=== PATIENT | female | born 1945 | race Caucasian/White ===

== ENCOUNTER 2017-05-18 19:29 | Inpatient (IN) | payer OTHER ==
[~2017-05-18] VITALS: Ht 154.9 cm; Wt 119.2 kg
[~2017-05-18 19:29] MED LIST: ALBU3IS INH; ALBU90OI61; ASPI81EC; BUPR100; BUPR100 PO; BUPR100ER PO; CALCAVITD PO; CART1OPSO; CART1OPSO BOTHEYES; CELEXA 40 MG; CITA20 PO; CLON1; CLON1 PO; CYCL10 PO; Citalopram HBr40 MG PO; Coq-10100 MG PO; FLUSAL2505; FLUSAL2505 INH; FLUT.05NI; GABA300 PO; LEVFLO500 PO; LEVO750 PO; LEVSOD100; LEVSOD100 PO; LEVSOD125 PO; LISI20; LISI20 PO; LOSA50 PO; METF500; METF500 PO; MONT10T; MONT10T PO; MULVITMIND; MULVITMIND PO; Milk Thistle175 M1 PO; NEBI5 PO; OMEP20ER PO; OXYACE5T PO; PANT40 PO; PRED10; PRED10 PO; SIMV40; SIMV40 PO; TIOT18 INH; UBID10 PO; Ventolin Soln3 ML INH
[2017-05-18 19:57] LABS: BASOPHILS ABSOLUTE AUTO 0.04 K/mm3 (0.00-0.23); BASOPHILS PERCENT AUTO 0 % (0-2); EOSINOPHILS ABSOLUTE AUTO 0.09 K/mm3 (0.00-0.68); EOSINOPHILS PERCENT AUTO 1 % (0-6); Hemoglobin 12.1 g/dL (11.5-16.0); IMMATURE GRAN ABSOLUTE AUTO 0.06 K/mm3 (0.00-0.10); IMMATURE GRAN PERCENT AUTO 1 % (0-1); LYMPHOCYTES ABSOLUTE AUTO 1.05 K/mm3 (0.84-5.20); LYMPHOCYTES PERCENT AUTO 8 % (21-46); MONOCYTES ABSOLUTE AUTO 0.52 K/mm3 (0.16-1.47); MONOCYTES PERCENT AUTO 4 % (4-13); Mean Corpuscular HGB 32.4 pg (26.0-34.0); Mean Corpuscular HGB Conc 32.7 g/dL (31.5-36.5); Mean Corpuscular Volume 99 fL (80-100); Mean Platelet Volume 9.5 fL (9.1-12.4); NEUTROPHILS ABSOLUTE AUTO 10.78 K/mm3 (1.96-9.15); NEUTROPHILS PERCENT AUTO 86 % (41-73); Platelet Count 254 K/mm3 (150-400); RDW Coefficient Variation 13.2 % (11.7-14.2); RDW Standard Deviation 48.8 fL (35.1-46.3); Red Blood Cell Count 3.73 M/mm3 (3.80-5.20); White Blood Cell Count 12.54 K/mm3 (4.00-11.30)
[2017-05-18 20:17] LABS: PCO2 Arterial 46.6 mmHg (35-45); PO2 Arterial 78.9 mmHg (80-100); pH Blood Arterial 7.36 (7.35-7.45)
[2017-05-18 20:25] LABS: Alanine Aminotransfer (ALT/SGP 33 U/L (12-78); Albumin/Globulin Ratio 1.1 (0.8-1.8); Alk Phos 47 U/L (50-136); Anion Gap 8 mmol/L (6-16); Aspartate Aminotrans (AST/SGOT 39 U/L (12-37); Bilirubin, Total 0.9 mg/dL (0.1-1.0); Blood Urea Nitrogen 21 mg/dL (8-24); CO2, Blood 26 mmol/L (21-32); Calcium, Blood 9.6 mg/dL (8.5-10.1); Chloride, Blood 103 mmol/L (98-108); Creatinine, Blood 0.73 mg/dL (0.40-1.00); Globulin, Blood 3.7 g/dL (2.2-4.0); Glomerular Filtration Rate >60 (60-); Glucose, Blood 126 mg/dL (70-99); Potassium, Blood 4.6 mmol/L (3.5-5.5); Sodium, Blood 137 mmol/L (136-145); Total Protein, Blood 7.7 g/dL (6.4-8.2); Troponin I <0.015 ng/mL (0.000-0.040)
[2017-05-18 21:28] LABS: Influenza A Negative (NEGATIVE); Influenza B Negative (NEGATIVE)
[2017-05-19 04:21] LABS: Hematocrit 34.6 % (33.0-51.0); Hemoglobin 11.4 g/dL (11.5-16.0); Mean Corpuscular HGB 32.6 pg (26.0-34.0); Mean Corpuscular HGB Conc 32.9 g/dL (31.5-36.5); Mean Corpuscular Volume 99 fL (80-100); Platelet Count 213 K/mm3 (150-400); RDW Coefficient Variation 13.3 % (11.7-14.2); RDW Standard Deviation 47.9 fL (35.1-46.3); White Blood Cell Count 12.16 K/mm3 (4.00-11.30)
[2017-05-19 04:53] LABS: Alanine Aminotransfer (ALT/SGP 27 U/L (12-78); Albumin, Blood 3.5 g/dL (3.4-5.0); Albumin/Globulin Ratio 0.9 (0.8-1.8); Alk Phos 38 U/L (50-136); Anion Gap 9 mmol/L (6-16); Aspartate Aminotrans (AST/SGOT 27 U/L (12-37); Bilirubin, Total 0.8 mg/dL (0.1-1.0); Blood Urea Nitrogen 21 mg/dL (8-24); Bun/Creatinine Ratio 29.6 (12.0-20.0); CO2, Blood 27 mmol/L (21-32); Calcium, Blood 9.1 mg/dL (8.5-10.1); Chloride, Blood 102 mmol/L (98-108); Creatinine, Blood 0.71 mg/dL (0.40-1.00); Globulin, Blood 3.9 g/dL (2.2-4.0); Glomerular Filtration Rate >60 (60-); Glucose, Blood 182 mg/dL (70-99); Potassium, Blood 4.6 mmol/L (3.5-5.5); Sodium, Blood 138 mmol/L (136-145); Total Protein, Blood 7.4 g/dL (6.4-8.2)
[2017-05-19 05:19] LABS: BAND PERCENT MAN 18 % (0-8); BASOPHILS PERCENT MAN 0 % (0-2); EOSINOPHILS PERCENT MAN 0 % (0-6); LYMPHOCYTES % ATYPICAL MANUAL 3 % (0-0); LYMPHOCYTES PERCENT MAN 2 % (21-46); MONOCYTES ABSOLUTE MAN 0.12 K/mm3 (0.16-1.47); MONOCYTES PERCENT MAN 1 % (4-13); NEUTROPHILS ABSOLUTE MAN 11.43 K/mm3 (1.96-9.15); SEG NEUTROPHILS PERCENT MAN 76 % (41-73); TOTAL CELLS COUNTED 100
[2017-05-20] MEDS ORDERED: FLUT1DIS2 INH (14:30)
[2017-05-20] MEDS ORDERED: OPTH BOTHEYES (14:34)
[2017-05-20] MEDS ORDERED: [UNRECOGNIZED DRUG - OTHER] BOTHEYES (14:34)
[2017-05-20] MEDS ORDERED: LEVO750 PO (14:49)
[2017-05-20] MEDS ORDERED: PRED10 (14:51)
== END 2017-05-20 16:00 | disposition home or self-care (01) | DRG 871 ==
LOC: ER 19:29 → PCU 20:53 → MEDS 05-19 15:54 → ENPENDDIS 05-20 11:00 → MEDS 05-20 16:00
PROVIDERS: Emergency Medicine; Internal Medicine
DX: A41.9 Sepsis, unspecified organism (principal); J96.21 Acute and chronic respiratory failure with hypoxia; J18.9 Pneumonia, unspecified organism; J44.1 Chronic obstructive pulmonary disease with (acute) exacerbation; Z68.42 Body mass index [BMI] 45.0-49.9, adult; E66.9 Obesity, unspecified; G47.30 Sleep apnea, unspecified; E11.9 Type 2 diabetes mellitus without complications; E03.9 Hypothyroidism, unspecified; M19.90 Unspecified osteoarthritis, unspecified site; F41.9 Anxiety disorder, unspecified; L40.9 Psoriasis, unspecified; Z79.84 Long term (current) use of oral hypoglycemic drugs; Z79.899 Other long term (current) drug therapy; Z99.81 Dependence on supplemental oxygen
CPT/HCPCS: 36415; 36600; 71045; 80053; 82803; 82947; 83605; 83880; 84484; 85025; 87040; 87070; 87205; 87804; 93005; 93010; 94640; 94660; 94667; 94762; 96374; 99285; J0696; J1650; J1940; J1956; J2405; J2930; J7030

== ENCOUNTER → 2017-08-20 | Outpatient (CLI) | payer OTHER ==
[~2017-08-20] MED LIST changes: +FLUT1DIS2 INH; +OPTH BOTHEYES; +[UNRECOGNIZED DRUG - OTHER] BOTHEYES
== END | disposition home or self-care (01) ==
LOC: LAB EV 11:46
DX: E09.9 Drug or chemical induced diabetes mellitus without complications (principal)
CPT/HCPCS: 82043

== ENCOUNTER 2019-03-13 07:50 | Emergency (ER) | payer OTHER ==
[~2019-03-13] VITALS: Ht 162.6 cm; Wt 113.4 kg
[~2019-03-13 07:50] MED LIST changes: -FLUT1DIS2 INH; +FLUT1DIS5 INH; +HYDR1TAB94 PO
[2019-03-13 08:24] LABS: BASOPHILS ABSOLUTE AUTO 0.04 K/mm3 (0.00-0.23); BASOPHILS PERCENT AUTO 0 % (0-2); EOSINOPHILS PERCENT AUTO 0 % (0-6); Hematocrit 34.1 % (33.0-51.0); Hemoglobin 10.8 g/dL (11.5-16.0); IMMATURE GRAN PERCENT AUTO 1 % (0-1); LYMPHOCYTES ABSOLUTE AUTO 0.74 K/mm3 (0.84-5.20); LYMPHOCYTES PERCENT AUTO 5 % (21-46); MONOCYTES ABSOLUTE AUTO 0.74 K/mm3 (0.16-1.47); MONOCYTES PERCENT AUTO 5 % (4-13); Mean Corpuscular HGB 31.3 pg (26.0-34.0); Mean Corpuscular HGB Conc 31.7 g/dL (31.5-36.5); Mean Corpuscular Volume 99 fL (80-100); Mean Platelet Volume 9.6 fL (9.1-12.4); NEUTROPHILS ABSOLUTE AUTO 13.19 K/mm3 (1.96-9.15); NEUTROPHILS PERCENT AUTO 89 % (41-73); Platelet Count 287 K/mm3 (150-400); RDW Coefficient Variation 13.2 % (11.7-14.2); RDW Standard Deviation 46.9 fL (35.1-46.3); Red Blood Cell Count 3.45 M/mm3 (3.80-5.20); White Blood Cell Count 14.81 K/mm3 (4.00-11.30)
[2019-03-13 08:41] LABS: Alanine Aminotransfer (ALT/SGP 19 U/L (12-78); Albumin, Blood 3.3 g/dL (3.4-5.0); Albumin/Globulin Ratio 0.9 (0.8-1.8); Alk Phos 54 U/L (50-136); Anion Gap 9 mmol/L (6-16); Aspartate Aminotrans (AST/SGOT 20 U/L (12-37); Bilirubin, Total 1.1 mg/dL (0.1-1.0); Blood Urea Nitrogen 24 mg/dL (8-24); Bun/Creatinine Ratio 24.8 (12.0-20.0); CO2, Blood 27 mmol/L (21-32); Calcium, Blood 9.5 mg/dL (8.5-10.1); Chloride, Blood 102 mmol/L (98-108); Creatinine, Blood 0.97 mg/dL (0.40-1.00); Globulin, Blood 3.8 g/dL (2.2-4.0); Glomerular Filtration Rate >60 (60-); Glucose, Blood 138 mg/dL (70-99); Potassium, Blood 4.1 mmol/L (3.5-5.5); Sodium, Blood 138 mmol/L (136-145); Total Protein, Blood 7.1 g/dL (6.4-8.2); Troponin I 0.042 ng/mL (0.000-0.040)
[2019-03-13 09:00] LABS: Base Excess Venous 5.5 mmol/L; Bicarbonate Venous 28.6 mmol/L (24.0-30.0); PCO2 Venous 46.6 mmHg (38-42); PO2 Venous 64.8 mmHg (38-42); pH Blood Venous 7.42 (7.34-7.37)
[2019-03-13 11:31] LABS: Source, Urine Catheter
[2019-03-13 11:45] LABS: Appearance, Urine Clear (Clear); Blood, Urine 1+ (Neg); Color, Urine Yellow (P-Yellow); Glucose Qualitative, Urine Neg (Neg); Ketones, Urine 1+ (Neg); Leukocyte Esterase, Urine 1+ (Neg); Nitrite, Urine Neg (Neg); Protein, Urine 2+ (Neg); Specific Gravity, Urine 1.025 (1.003-1.022); Urobilinogen, Urine 1+ (Normal)
[2019-03-13 11:54] LABS: Bilirubin, Urine 1+ (Neg)
[2019-03-13 11:58] LABS: Bacteria Few /hpf; Red Blood Cells, Urine 0-2 /hpf (0-2); Squamous Epithelial Cells Mod /hpf (Few)
== END 2019-03-13 12:20 | disposition short-term general hospital (02) ==
LOC: ER 07:50
PROVIDERS: Emergency Medicine
DX: I60.9 Nontraumatic subarachnoid hemorrhage, unspecified (principal); J44.9 Chronic obstructive pulmonary disease, unspecified; G47.30 Sleep apnea, unspecified; E11.9 Type 2 diabetes mellitus without complications; E03.9 Hypothyroidism, unspecified; F41.8 Other specified anxiety disorders; E66.01 Morbid (severe) obesity due to excess calories; Z68.41 Body mass index [BMI] 40.0-44.9, adult; Z79.899 Other long term (current) drug therapy; Z79.84 Long term (current) use of oral hypoglycemic drugs; Z99.89 Dependence on other enabling machines and devices; Z87.891 Personal history of nicotine dependence; Z99.81 Dependence on supplemental oxygen
CPT/HCPCS: 36415; 70450; 71046; 80053; 81001; 82803; 83605; 83880; 84443; 84484; 85025; 87040; 87086; 93005; 93010; 94640; 96374; 96375; 99285-25; J2405; J3010; P9612

== ENCOUNTER 2019-04-18 09:14 | Inpatient (IN) | payer OTHER ==
[~2019-04-18] VITALS: Ht 162.6 cm; Wt 117.8 kg
[2019-04-18] MEDS ORDERED: ENOX40I SC (09:40)
[2019-04-18] MEDS ORDERED: TAMS.4ER PO (09:41)
[2019-04-18] MEDS ORDERED: Senna S Tablet1 EACH PO (09:43)
[2019-04-18 09:44] LABS: BASOPHILS ABSOLUTE AUTO 0.04 K/mm3 (0.00-0.23); BASOPHILS PERCENT AUTO 1 % (0-2); EOSINOPHILS ABSOLUTE AUTO 0.28 K/mm3 (0.00-0.68); EOSINOPHILS PERCENT AUTO 6 % (0-6); Hematocrit 30.8 % (33.0-51.0); Hemoglobin 9.2 g/dL (11.5-16.0); IMMATURE GRAN ABSOLUTE AUTO 0.02 K/mm3 (0.00-0.10); IMMATURE GRAN PERCENT AUTO 0 % (0-1); LYMPHOCYTES ABSOLUTE AUTO 1.53 K/mm3 (0.84-5.20); LYMPHOCYTES PERCENT AUTO 31 % (21-46); MONOCYTES ABSOLUTE AUTO 0.51 K/mm3 (0.16-1.47); MONOCYTES PERCENT AUTO 11 % (4-13); Mean Corpuscular HGB 30.4 pg (26.0-34.0); Mean Corpuscular HGB Conc 29.9 g/dL (31.5-36.5); Mean Corpuscular Volume 102 fL (80-100); Mean Platelet Volume 9.6 fL (9.1-12.4); NEUTROPHILS ABSOLUTE AUTO 2.49 K/mm3 (1.96-9.15); NEUTROPHILS PERCENT AUTO 51 % (41-73); Platelet Count 224 K/mm3 (150-400); RDW Coefficient Variation 13.7 % (11.7-14.2); Red Blood Cell Count 3.03 M/mm3 (3.80-5.20); White Blood Cell Count 4.87 K/mm3 (4.00-11.30)
[2019-04-18] MEDS ORDERED: DIVA250ER PO (09:44)
[2019-04-18] MEDS ORDERED: SEROQUEL25 MG PO (09:45)
[2019-04-18] MEDS ORDERED: Pedi-Dri 100,0060 GM TOP (09:45)
[2019-04-18] MEDS ORDERED: CELEXA PO (09:46)
[2019-04-18] MEDS ORDERED: Celexa40 MG PO (09:47)
[2019-04-18] MEDS ORDERED: MELA3 PO (09:48)
[2019-04-18 10:05] LABS: Albumin, Blood 2.7 g/dL (3.4-5.0); Albumin/Globulin Ratio 0.8 (0.8-1.8); Bilirubin, Total 0.4 mg/dL (0.1-1.0); Bun/Creatinine Ratio 15.8 (12.0-20.0); Calcium, Blood 9.7 mg/dL (8.5-10.1); Creatinine, Blood 1.14 mg/dL (0.40-1.00); Globulin, Blood 3.4 g/dL (2.2-4.0); Potassium, Blood 4.5 mmol/L (3.5-5.5); Total Protein, Blood 6.1 g/dL (6.4-8.2)
[2019-04-18 10:55] LABS: Source, Urine Clean Catch
[2019-04-18 11:05] LABS: Bilirubin, Urine Neg (Neg); Blood, Urine 1+ (Neg); Glucose Qualitative, Urine Neg (Neg); Ketones, Urine Neg (Neg); Leukocyte Esterase, Urine 3+ (Neg); Nitrite, Urine Pos (Neg); Protein, Urine Neg (Neg); Specific Gravity, Urine 1.025 (1.003-1.022); Urobilinogen, Urine NORM (Normal)
[2019-04-18 11:17] LABS: Appearance, Urine Hazy (Clear); Color, Urine Yellow (P-Yellow); White Blood Cells, Urine TNTC /hpf (0-5)
[2019-04-18 11:18] LABS: Bacteria Mod /hpf; Squamous Epithelial Cells Few /hpf (Few)
[2019-04-18] MEDS ORDERED: CYAN500 PO (12:13)
[2019-04-18] MEDS ORDERED: ABAT250V (12:13)
[2019-04-18] MEDS ORDERED: VIVARIN PO (12:17)
--- NOTE | 2019-04-18 13:30 | NUR ---
Assumed care Pt transferred from ER to Rm 304. Received report from ROSALIO Ambrocio. Patient arrived A/Ox2 to self and place via stretcher. Pt transferred over to bed needing redirection. (Bay) at the bedside. Pt settled into room and oriented to call system. Call light in reach, bed lowest position.
[2019-04-18] MEDS ORDERED: Accuneb1.25 MG/3 INH (15:51)
[2019-04-18] MEDS ORDERED: ACET325 PO (15:51)
[2019-04-18] MEDS ORDERED: BUPR100 PO (15:52)
[2019-04-18] MEDS ORDERED: CO Q-10100 MG PO (15:59)
[2019-04-18] MEDS ORDERED: LOSARTAN POTAS100 MG PO (16:02)
[2019-04-18] MEDS ORDERED: HYDR1TAB94 PO (16:02)
[2019-04-18] MEDS ORDERED: MIRALAX17 GM PO (16:05)
[2019-04-18] MEDS ORDERED: CENTRUM SILVER1 EAC2 PO (16:12)
[2019-04-18] MEDS ORDERED: CALCIUM 600-VI1 EAC2 PO (16:13)
--- NOTE | 2019-04-18 19:38 | NUR ---
SUMMARY FROM 1800 PT SETTLED IN TO ROOM. HAS BEEN ATTEMPTING TO GET OUT OF BED A FEW TIMES. REPORTS SHE WANTS TO SIT ON SIDE OF BED BUT THEN CONTINUES TO TRY AND GET UP. ATE HER SUPPER WITH NO PROBLEM. O2 IN PLACE. CAN BE DIFFICULT TO REDIRECT.
--- NOTE | 2019-04-19 04:18 | NUR ---
SUMMARY: PT IS VERY CONFUSED EXCEPT TO SELF AND IS DIFFICULT TO REDIRECT. SHE WAS REPEATEDLY GETTING OOB AT THE START OF SHIFT, SETTING OFF HER ALARM AND HAS REQUIRED FREQUENT REMINDERS. CONVERSATION WAS VERY NONSENSICAL AND CALLING PT'S DAUGHTER TO ASSIST IN CALMING/REORIENTING HER WAS UNSUCCESSFUL. SEROQUEL AND KLONOPIN RECIEVED AT HS PER EMAR AND PT FINALLY SETTLED AND SLEPT. SHE REMAINS VERY FIGITY WHEN AWAKE, PICKING AT IV LINE AND REMOVING NC. SPO2 WNL ON 2L NC BUT DESATS W/O IT, CONT BIOX INTACT. IVF INFUSING AND ABX RECIEVED FOR UTI. PT IS 1-2 ASSIST TO BSC FOR VOIDS, ATTENDS CHANGED PRN. NO ACUTE CHANGES, VSS/AFEBRILE. SHE'S SLIGHTLY HYPOTENSIVE, SBP 90'S-100'S BUT SHE'S BEEN ASYMPTOMATIC OF ANY CARDIAC DISTRESS. WCTM AND REPORT TO DAY RN.
--- NOTE | 2019-04-19 19:31 | NUR ---
SHIFT SUMMARY PT UP IN CHAIR ON AND OFF TODAY. IN TO VISIT SEVERAL TIMES. PT BECAME INCREASINGLY CONFUSED THE DAY PROGRESSED. BECAME AGITATED AND YELLING OUT THIS EVENING. WOULDN'T FOLLOW DIRECTIONS AND KEPT DEMANDING HER SHOES AND HER SISTER TO BE CALLED TO PICK HER UP. WOULDN'T ALLOW HERSELF TO BE ASSISTED TO BED AND REQUIRED 4 PEOPLE TO HELP HER. HAD CALLED ON PROVIDER AND RECEIVED AN ORDER FOR ZYPREXA BUT PT DID FALL ASLEEP WITHIN 5 MINUTES OF BEING PUT IN BED AND IT WASN'T GIVEN. REPORT GIVEN TO ONCOMING SHIFT.
--- NOTE | 2019-04-19 23:43 | NUR ---
BEGINNING SHIFT SUMMARY ASSUMED CARE OF PT AT 1900. PT IS ALERT AND ORIENTED TO SELF. PT HAS BECOME INCREASING CONFUSED T/O THE SHIFT. IM ZYPREXA GIVEN, EVEN MEDICATIONS GIVEN. HOSPITALIST NOTIFIED AND ORDERED HALDOL, PT WAS STIL AGITATED AND GETTING OUT OF BED. HOSPITALIST NOTIFED AGAIN AND ORIDERED MORE SEROQUEL. PT IS STILL AGITATED AND GETTING OUT OF BED. THERE IS NO SERGO RESTRAINT THAT WILL FIT PT AT THIS TIME. HEART SOUNDS REGULAR, LUNG SOUNDS DIMINISHED WITH CRACKLES AT THE BASES, PT ON 2 L P2 AT BASELINE, CONTINUOUS BIOX MONITORING, PT STAYING ABOUVE 90%. CALL LIGHT IN REACH, BED IN LOWEST POSTION,BED ALARM ON, VIDEO MONITORING ON, WILL CONTINUE TO MONITOR.
[2019-04-20 05:15] LABS: BASOPHILS ABSOLUTE AUTO 0.03 K/mm3 (0.00-0.23); BASOPHILS PERCENT AUTO 1 % (0-2); EOSINOPHILS ABSOLUTE AUTO 0.26 K/mm3 (0.00-0.68); EOSINOPHILS PERCENT AUTO 6 % (0-6); Hematocrit 27.9 % (33.0-51.0); Hemoglobin 8.5 g/dL (11.5-16.0); IMMATURE GRAN ABSOLUTE AUTO 0.02 K/mm3 (0.00-0.10); IMMATURE GRAN PERCENT AUTO 1 % (0-1); LYMPHOCYTES ABSOLUTE AUTO 1.26 K/mm3 (0.84-5.20); LYMPHOCYTES PERCENT AUTO 30 % (21-46); MONOCYTES ABSOLUTE AUTO 0.43 K/mm3 (0.16-1.47); MONOCYTES PERCENT AUTO 10 % (4-13); Mean Corpuscular HGB 30.5 pg (26.0-34.0); Mean Corpuscular HGB Conc 30.5 g/dL (31.5-36.5); Mean Corpuscular Volume 100 fL (80-100); Mean Platelet Volume 9.5 fL (9.1-12.4); NEUTROPHILS ABSOLUTE AUTO 2.16 K/mm3 (1.96-9.15); NEUTROPHILS PERCENT AUTO 52 % (41-73); Platelet Count 228 K/mm3 (150-400); RDW Coefficient Variation 13.3 % (11.7-14.2); RDW Standard Deviation 49.3 fL (35.1-46.3); Red Blood Cell Count 2.79 M/mm3 (3.80-5.20); White Blood Cell Count 4.16 K/mm3 (4.00-11.30)
--- NOTE | 2019-04-20 05:21 | NUR ---
END SHIFT SUMMARY SEROQUEL PILL WAS FOUND IN PT SHEETS DURING ATTENDS CHANGE, EMAR UPDATED. PT SLEPT FOR A COUPLE HOURS UNTIL SHE HAD TO USE THE RESTROOM, THEN THE PT HAS BEEN IN AND OUT OF SLEEP TRYING TO GET OUT OF BED WHEN SHE CAN. PT IS STILL CONFUSED. PT WAS CONTINET TWICE LAST NIGHT WITH THE BED CARMONA, PT COULD NOT USE THE BEDSIDE COMMODE DUE TO WEAKNESS TONIGHT. PT IS CURRENTLY SLEEPING, CALL LIGHT IN REACH, BED IN LOWEST POSTION, BED ALARM ON, WILL CONTINUE TO MONTITOR UNTIL DAYSHIFT NURSE ARRIVES.
[2019-04-20 05:35] LABS: Anion Gap 5 mmol/L (6-16); Blood Urea Nitrogen 13 mg/dL (8-24); CO2, Blood 27 mmol/L (21-32); Calcium, Blood 9.1 mg/dL (8.5-10.1); Chloride, Blood 115 mmol/L (98-108); Creatinine, Blood 0.87 mg/dL (0.40-1.00); Glomerular Filtration Rate >60 (60-); Glucose, Blood 98 mg/dL (70-99); Potassium, Blood 3.9 mmol/L (3.5-5.5); Sodium, Blood 147 mmol/L (136-145)
--- NOTE | 2019-04-20 10:19 | NUR ---
THIS RN WENT TO PASS MEDICATIONS TO PATIENT. PATIENT BELIEVED THIS RN TO BE A PART OF THE DRUG CARTEL. PATIENT CUSSING AT THIS RN AND THE SN. PATIENT MOVING ARM AND NOT ALLOWING THIS RN TO PROVIDE MEDICATIONS. PATIENT THEN STOOD UP AND WAS PULLING ON BIOX. UNABLE TO REDIRECT. PATIENT WALKING OUT OF ROOM, CONTINUALLY YELLING AND CUSSING AT STAFF. THIS RN CALLED SECURITY. THIS RN THEN CALLED DR. MARRUFO, ORDERS FOR SOFT WRIST, MITTENS, SIDE RAILS PLACED. NEW IV PLACED BY CORPORATE PLANNING MANAGERROSALIO PACK FOR PATIENT TO RECIEVE IV ANTIBIOTICS. RESTRAINT ORDERS PLACED.
--- NOTE | 2019-04-20 10:31 | NUR ---
NOTIFIED OF PLACING PATIENT IN RESTRAINTS. TEARFUL. DISCUSSED CONCERNS OF PATIENT HAVING A "PSYCHOTIC EPISODE" THIS RN INFORMED SHE WOULD LET THE DR. KNOW OF PAST HISTORY OF MENTAL ILLNESS. ASKED IF HE COULD STAY HOME AND REST. THIS RN INFORMED HIM SHE WOULD CALL IF ANYTHING CHANGED.
--- NOTE | 2019-04-20 17:04 | NUR ---
SHIFT SUMMARY PATIENT IS YELLING FOR YAMINI. SHE IS NOT ORIENTED TO PLACE OR SITUATION. BELIEVES SHE IS IMPRISONED AT THIS TIME. BELIEVED THE CLIPPER COUNTERS WAS HER GRANDDAUGHTER. UNABLE TO REORIENT. EYES CLOSED WHILE YELLING.
[2019-04-20 17:35] LABS: Vancomycin, Trough 14.9 ug/mL (5.0-10.0)
[2019-04-21 04:48] LABS: BASOPHILS ABSOLUTE AUTO 0.05 K/mm3 (0.00-0.23); BASOPHILS PERCENT AUTO 1 % (0-2); EOSINOPHILS ABSOLUTE AUTO 0.23 K/mm3 (0.00-0.68); EOSINOPHILS PERCENT AUTO 5 % (0-6); Hematocrit 32.2 % (33.0-51.0); Hemoglobin 9.8 g/dL (11.5-16.0); IMMATURE GRAN ABSOLUTE AUTO 0.14 K/mm3 (0.00-0.10); IMMATURE GRAN PERCENT AUTO 3 % (0-1); LYMPHOCYTES ABSOLUTE AUTO 1.46 K/mm3 (0.84-5.20); LYMPHOCYTES PERCENT AUTO 34 % (21-46); MONOCYTES ABSOLUTE AUTO 0.54 K/mm3 (0.16-1.47); MONOCYTES PERCENT AUTO 12 % (4-13); Mean Corpuscular HGB 30.2 pg (26.0-34.0); Mean Corpuscular HGB Conc 30.4 g/dL (31.5-36.5); Mean Corpuscular Volume 99 fL (80-100); Mean Platelet Volume 9.7 fL (9.1-12.4); NEUTROPHILS ABSOLUTE AUTO 1.92 K/mm3 (1.96-9.15); NEUTROPHILS PERCENT AUTO 44 % (41-73); Platelet Count 210 K/mm3 (150-400); RDW Coefficient Variation 13.4 % (11.7-14.2); RDW Standard Deviation 49.1 fL (35.1-46.3); Red Blood Cell Count 3.24 M/mm3 (3.80-5.20); White Blood Cell Count 4.34 K/mm3 (4.00-11.30)
[2019-04-21 04:58] LABS: Alanine Aminotransfer (ALT/SGP 19 U/L (12-78); Albumin, Blood 2.6 g/dL (3.4-5.0); Albumin/Globulin Ratio 0.8 (0.8-1.8); Alk Phos 44 U/L (50-136); Anion Gap 7 mmol/L (6-16); Aspartate Aminotrans (AST/SGOT 18 U/L (12-37); Bilirubin, Total 0.5 mg/dL (0.1-1.0); Blood Urea Nitrogen 8 mg/dL (8-24); CO2, Blood 23 mmol/L (21-32); Chloride, Blood 117 mmol/L (98-108); Globulin, Blood 3.3 g/dL (2.2-4.0); Glomerular Filtration Rate >60 (60-); Glucose, Blood 100 mg/dL (70-99); Potassium, Blood 3.6 mmol/L (3.5-5.5); Sodium, Blood 147 mmol/L (136-145); Total Protein, Blood 5.9 g/dL (6.4-8.2)
[2019-04-21 06:08] LABS: Source, Urine Catheter
[2019-04-21 06:13] LABS: Bilirubin, Urine Neg (Neg); Blood, Urine Neg (Neg); Glucose Qualitative, Urine Neg (Neg); Ketones, Urine Neg (Neg); Leukocyte Esterase, Urine Neg (Neg); Nitrite, Urine Neg (Neg); Protein, Urine Neg (Neg); Urobilinogen, Urine NORM (Normal)
[2019-04-21 06:26] LABS: PCO2 Arterial 47.4 mmHg (35-45); PO2 Arterial 87.8 mmHg (80-100); pH Blood Arterial 7.35 (7.35-7.45)
[2019-04-21 06:27] LABS: Appearance, Urine Clear (Clear); Color, Urine Yellow (P-Yellow)
--- NOTE | 2019-04-21 07:44 | NUR ---
NOC SHIFT SUMMARY PT VERY ANXIOUS AT BEGINING OF SHIFT. IN RESTRAINTS AND CONSTANTLY TRYING TO GET OUT OF BED. HAD PREVIOUSLY PULLED OUT MULTIPLE IV'S. GAVE ATIVAN 1MG IV AT 2028 AND THIS CALMED PT ENOUGH THAT I WAS ABLE TO GIVE HER HER EVENING MEDS. SHE WAS STILL CONTINUALLY MOVING AROUND IN BED AND NAME CALLING. AT APPROX 0100 THIS AM PT STARTED TO SETTLE DOWN AND GO TO SLEEP. WHEN SHE HAD NOT VOIDED SHE WAS BLADDER SCANNED AND ORDER FOR ZURITA CATH OBTAINED FOR URINARY RETENTION. ZURITA PLACED. PT DID NOT AWAKEN DURING ZURITA PLACEMENT. CONSULTED WITH [facility] REGARDING THIS AND CALLED TO HOSPITALIST VLADIMIR AT 0545 AND REPORTED PT NOT AWAKENING. OBTAINED ORDER FOR STAT BLOOD GAS AT 0556. CALLED AT 0637 WITH BLOOD GAS RESULTS AND FURTHER EXPLAINED HISTORY OF SHUNT PLACEMENT IN HEAD. ORDERED STAT CT. REPORT TO ON COMING RN.
[2019-04-21 11:05] LABS: International Normalized Ratio 1.06; Prothrombin Time Results 11.3 Sec (9.7-11.5)
--- NOTE | 2019-04-21 14:05 | NUR ---
PATIENT WAS DIFFICULT TO AROUSE THIS MORNING. SHE WOULDE OPEN HER EYES WITH PAINFUL STIMULI OR HEARING A VOICE. SHE WOKE UP COMPLETELY DURING HER BEDBATH. HE HAS BEEN AT THE BEDSIDE ON AND OFF THROUGHOUT THE DAY. THE PATIENT IS ALERT AND ORIENTED TODAY WITH SOME FORGFETFULLNESS. SHE KNOWS SHE IS EXTREMELY TIRED. A LUMBAR PUNCTURE HAS BEEN ORDERED. THE PATIENT IS NOW LAYING ON HER STOMACH TO SEE IF SHE CAN HANDLE DOING SO DURING THE PROCEDURE. SHE WAS ONLY ABLE TO LAY ON HER STOMACH FOR 8 MINUTES.
[2019-04-21 16:37] LABS: Automated CSF WBC Count 0.012 K/mm3 (0-5); WBC Count, CSF 12 /mm3 (0-5)
[2019-04-21 16:50] LABS: RBC Count, CSF 112 /mm3 (0-0)
[2019-04-21 16:51] LABS: Appearance, CSF Hazy (Clear); Color, CSF No Color (No Color)
[2019-04-21 17:01] LABS: Lymphocytes, CSF 100 % (40-80)
--- NOTE | 2019-04-21 17:29 | NUR ---
PATIENT WAS DIFFICULT TO AROUSE THIS MORNING. SHE WOKE UP DURING HER BEDBATH THIS MORNING. SHE WAS MORE ALERT AND ORIENTED TODAY COMPARED TO PREVIOUS DAYS. CEREBRAL SPINAL FLUID WAS DRAWN FROM THE PATIENTS DOMESTIC MAID SHUNT THIS AFTERNOON AND SENT TO THE LAB. PATIENT WAS GIVEN 0.5MG OF ATIVAN IV BEFORE THIS PROCEDURE. THE PATIENT BECAME MORE AGITATED AND PULLING AT HER LINES AT 1630. ZURITA IS IN PLACE. WILL MONITOR PATIENT.
[2019-04-21 17:49] LABS: Cryptococcus Neoformans/Gattii Not Detected (NOT DETECT); Enterovirus Not Detected (NOT DETECT); Escherichia Coli K1 Not Detected (NOT DETECT); Haemophilus Influenza Not Detected (NOT DETECT); Herpes Simplex Virus 1 Not Detected (NOT DETECT); Herpes Simplex Virus 2 Not Detected (NOT DETECT); Human Herpesvirus 6 Not Detected (NOT DETECT); Human Parechovirus Not Detected (NOT DETECT); Listeria Monocytogenes Not Detected (NOT DETECT); Neisseria Meningitidis Not Detected (NOT DETECT); Streptococcus Agalactiae Not Detected (NOT DETECT); Streptococcus Pneumoniae Not Detected (NOT DETECT); Varicella Zoster Virus Not Detected (NOT DETECT)
--- NOTE | 2019-04-21 18:39 | NUR ---
Inital spiritual care note: Mrs. Cherry was attempting to remove gown and asking for her purse. She appeared restless, confused, and unable to orient. Spouse and dtr at bedside. Pt kept repeating, "I need my purse. I'm going home." Spouse accepted prayer. They are active i the [employer] community in [place]. Spouse feels family is well loved and supported by this community. Candy Separator Hard making visits to hospital. No needs presented. Family expressed hope for complete recovery. Financial Compliance Manager services will remain available.
--- NOTE | 2019-04-21 23:08 | NUR ---
RECIEVED CALL FROM DR. MARRUFO. I UPDATED HIM ON PT CONDITION AND INFORMED HIM OF PT REFUSAL TO TAKE MEDS. NO ORDERS AT THIS TIME. HE STATES HE WILL SEE PT IN A.M.
--- NOTE | 2019-04-22 07:27 | NUR ---
NOC SHIFT SUMMARY PT IS CONFUSED WITH BOTH VISUAL AND AUDITORY HALUCINATIONS. HAS REMAINED IN RESTRAINTS THIS NIGHT SHE IS CONTINUALLY ATTEMPTING TO PULL OUT IV LINE, CATHETER TUBE, AND POX MONITOR. SHE IS CONTINUALLY ATTEMPTING TO GET OUT OF BED AND IS A FALL RISK. HOSPITALIST FOLLOWING PT CALLED DURING THE NIGHT AND WAS INFORMED OF CONDITION. PT GIVEN HALDOL AND ATIVAN PER MAR WITH LITTLE IMPROVMENT. REPORT TO ONCOMING RN.
[2019-04-22 17:26] LABS: Vancomycin, Trough 14.4 ug/mL (5.0-10.0)
--- NOTE | 2019-04-22 17:47 | NUR ---
PATIENT IS ALERT. SHE IS ORIENTED TO HERSELF ONLY. SHE HAS BEEN CONFUSED, AGITATED AND DELUSIONAL THROUGHOUT THE DAY, TREATED PER EMAR. SHE HAS BEEN IN BILATERAL SOFT WRIST RESTRAINTS FOR MOST OF THE DAY BECAUSE OF HER AGITATION, PULLING AT HER ZURITA AND TRYING TO GET OUT OF BED. ACCORDING TO THE SHIFT REPORT PATIENT DID NOT SLEEP THE NIGHT BEFORE. SHE DID NOT SLEEP DURING THIS SHIFT. HER WAS AT THE BEDSIDE FOR A SHORT AMOUNT OF TIME TODAY. WILL CONTINUE TO MONITOR.
--- NOTE | 2019-04-22 19:51 | NUR ---
Patient found with IV pulled out and legs over side of bed. IV site cleaned and bandage applied. Patient was resituated in bed, and IV antibiotic placed on hold. witihin 5 minutes, legs over side of bed, and patient pulling on mondragon catheter tubing. Call placed to MD to reinstitute bilateral soft wrist restraints after which time they were applied.
--- NOTE | 2019-04-23 06:03 | NUR ---
SALES PLANNING ANALYST SUMMARY Patient given scheduled HS medications last night, and fell asleep about 1.5 hours later. Slept without waking (except for lab and vital signs ) all night. In AM when time for 0600 meds, patient very difficult to wake, and this RN did not feel safe giving po mediction. Mondragon cath d/c'd after midnight. Patient tolerated well. Order to replace mondragon if scan greater than 600 not needed.
--- NOTE | 2019-04-23 17:43 | NUR ---
PATIENT MORE ORIENTED THIS SHIFT. RESTRAINTS REMOVED AT 1000 THIS AM AND PATIENT HAS BEEN CALM AND COOPERATIVE WITH CARE. 20G IV TO R FA WNL, RECEIVING ZOSYN TO TREAT UTI. VSS, ON 2LO2 VIA NC. TOLERATING DIET. ACHS BLOOD SUGARS, NO COVERAGE NEEDED THIS SHIFT. TAKES PILLS WHOLE WITH WATER. AT BEDSIDE FOR MMOST OF THE DAY. CONT/INCONT OF URINE. UP WITH FWW AND 1 ASSIST TO CHAIR/BSC.
--- NOTE | 2019-04-23 23:27 | NUR ---
Late note from 2129. Patient increasingly confused. Started shift asking questions about her situation, where she was, and how long she had been sick. Patient continued to have questions about her health, but didn't seem to have any delusions or paranoia regarding medications, staff until around 2114. At that time, (just after taking all of her scheduled medications), she accused staff of trying to kill her, wearing fake credentials on uniforms, etc. Proceeded to kick over overbed table, pull out IV, shred name bank and remove bioxx. With assist of 2 other nurses, patient bedding and gown changed, IM ativan, haldol and diphenhydramine given per order to calm patient and keep her safe. Hospitalist notified, and order for replacement of soft wrist restraints and four side rails received and implemented. will continue close monitoring.
[2019-04-24 05:16] LABS: BASOPHILS ABSOLUTE AUTO 0.06 K/mm3 (0.00-0.23); BASOPHILS PERCENT AUTO 1 % (0-2); EOSINOPHILS PERCENT AUTO 7 % (0-6); Hematocrit 29.8 % (33.0-51.0); Hemoglobin 9.1 g/dL (11.5-16.0); IMMATURE GRAN ABSOLUTE AUTO 0.01 K/mm3 (0.00-0.10); IMMATURE GRAN PERCENT AUTO 0 % (0-1); LYMPHOCYTES ABSOLUTE AUTO 1.28 K/mm3 (0.84-5.20); LYMPHOCYTES PERCENT AUTO 28 % (21-46); MONOCYTES ABSOLUTE AUTO 0.53 K/mm3 (0.16-1.47); MONOCYTES PERCENT AUTO 12 % (4-13); Mean Corpuscular HGB 29.8 pg (26.0-34.0); Mean Corpuscular HGB Conc 30.5 g/dL (31.5-36.5); Mean Corpuscular Volume 98 fL (80-100); Mean Platelet Volume 9.3 fL (9.1-12.4); NEUTROPHILS ABSOLUTE AUTO 2.34 K/mm3 (1.96-9.15); NEUTROPHILS PERCENT AUTO 52 % (41-73); Platelet Count 229 K/mm3 (150-400); RDW Coefficient Variation 13.3 % (11.7-14.2); RDW Standard Deviation 47.7 fL (35.1-46.3); Red Blood Cell Count 3.05 M/mm3 (3.80-5.20); White Blood Cell Count 4.52 K/mm3 (4.00-11.30)
[2019-04-24 05:31] LABS: Alanine Aminotransfer (ALT/SGP 21 U/L (12-78); Albumin, Blood 2.5 g/dL (3.4-5.0); Albumin/Globulin Ratio 0.8 (0.8-1.8); Alk Phos 41 U/L (50-136); Anion Gap 7 mmol/L (6-16); Aspartate Aminotrans (AST/SGOT 23 U/L (12-37); Bilirubin, Total 0.6 mg/dL (0.1-1.0); Blood Urea Nitrogen 7 mg/dL (8-24); Bun/Creatinine Ratio 8.4 (12.0-20.0); CO2, Blood 27 mmol/L (21-32); Calcium, Blood 8.7 mg/dL (8.5-10.1); Chloride, Blood 114 mmol/L (98-108); Creatinine, Blood 0.84 mg/dL (0.40-1.00); Globulin, Blood 3.2 g/dL (2.2-4.0); Glomerular Filtration Rate >60 (60-); Glucose, Blood 89 mg/dL (70-99); Potassium, Blood 3.6 mmol/L (3.5-5.5); Sodium, Blood 148 mmol/L (136-145); Total Protein, Blood 5.7 g/dL (6.4-8.2)
--- NOTE | 2019-04-24 05:52 | NUR ---
MACHINE TOOL DRESSER SUMMARY Patient rested off and on overnight after being given haldol, ativan and benedryl doses early in the evening. tolerating bilateral wrist restraints. only pulling at them when staff comes near her or IV line inadvertently lands near hands. Patient not complaining of discomfort and did not appear to be in any pain. Incontinent of clear yellow urine once in toilet and twice in briefs. Patient demonstrating paranoid behaviors such as suggesting that Staff badges could easily be created and how would I know whether you were real. would not allow bioxx to be replaced as she thought it may be transmitting her personal information to somewhere "not at all concerned about her".
--- NOTE | 2019-04-24 17:20 | NUR ---
RSTRAINTS REMOVED AT 0900 THIS AM. PATIENT WAS CALM AND COOPERATIVE WITH CARE THROUGHOUT THE DAY. ORIENTED TO SELF AND FAMILY ONLY TODAY. YAMINI AT BEDSIDE FOR MOST OF THE SHIFT. FALL PRECAUTIONS IN PLACE PER UNIT PROTOCOL. PATIENT HAD A FALL THIS SHIFT AND CHAIR ALARM DID ALARM BUT PATIENT WAS FOUND DOWN ON HER ABDOMEN WHEN STAFF ARRIVED. R UPPER ARM AND R KNEE WERE BRUISED AND SWOLLEN. NO VISIBLE INJURIES TO THE HEAD. X-RAYS TAKEN OF R HUMEROUS AND R SHOULDER, AWAITING RESULTS. MEDICATING WITH NORCO FOR CHRONIC AND ACUTE PAIN FROM THE FALL. ICE APPLED TO INJURIES. VSS POST FALL. 20G IV TO L FA WNL AND SL. ZOSYN D/C'D AND PATIENT WAS SWITCHED TO PO ABX.
--- NOTE | 2019-04-25 04:01 | NUR ---
MD OPHTHALMOLOGIST SUMMARY Patient very relaxed overnight with spouse, Bay staying in room with her. No outbreaks of agitation or impulsive behavior. Took HS meds willingly and without difficulty. Lung sounds dim in dependent bases but otherwise clear. Patient remains on 2.5 liters for Sat in low to mid 90's. Right arm and leg tender, but pain tolerable after 1 norco at HS. Much improved night for patient with spouse present in room.
--- NOTE | 2019-04-25 14:35 | NUR ---
Student nurse requested permission to provide care on 04/26/19. Permission granted.
--- NOTE | 2019-04-25 19:31 | NUR ---
SHIFT SUMMARY- BEDSIDE REPORT COMPLETED WITH NIGHT RN KILO. PT SITTING UP IN BED WITH THE CALL LIGHT IN REACH, SHE IS A HIGH FALL RISK, HAD A FALL HERE YESTERDAY. PT ON CAMERA TO PREVENT FALLS. NO RESTRAINTS TOPDAY. PT SPOUSE IS AT THE BEDSIDE AND IS PLANNING TO STAY THE NIGHT. PER DR HYATT IF THE PT PULLS OUT HER IV OK TO PLACE AN ORDER FOR NO IV ACCESS AT THAT TIME. BED ALARM AND CHAIR ALARM AT ALL TIMES. PT HAS HALLUCINATIONS AND IMMAGINES CONVERSATIONS, NEEDS FREQUENT REORIENTATION.
--- NOTE | 2019-04-26 00:16 | NUR ---
CONFUSED/AGITATED PT HAS ATTEMPTED TO GET OOB 3X WITHIN THE LAST HR. SHE IS VERY AGITATED STATING SHE IS LEAVING TO GO TO "THE PARK" & THAT HER & YAMINI ARE GETTING READY TO LEAVE "THE HOUSE". INFORMED PT SHE IS AT HOSPITAL & SHE IS NOT LEAVING TONIGHT. ASKED IF THERE WAS ANYTHING WE COULD GIVE BECAUSE SHE IS AGITATED, ANXIOUS & REPORTS HIS EVEN MENTIONED HE WAS GOING TO KILL HER. PT IS AOX1 AT THIS TIME, SHE DOES APPEAR TO BE LESS ALERT THEN BEGINNING OF SHIFT. GAVE IV HALDOL PER ORDERS FOR AGITATION & I WCTM. CALL LIGHT IN REACH.
[2019-04-26 05:25] LABS: Valproic Acid 36.9 ug/mL (50.0-100.0)
[2019-04-26 05:50] LABS: BASOPHILS ABSOLUTE AUTO 0.03 K/mm3 (0.00-0.23); BASOPHILS PERCENT AUTO 1 % (0-2); EOSINOPHILS ABSOLUTE AUTO 0.28 K/mm3 (0.00-0.68); EOSINOPHILS PERCENT AUTO 6 % (0-6); Hematocrit 30.5 % (33.0-51.0); Hemoglobin 9.4 g/dL (11.5-16.0); IMMATURE GRAN ABSOLUTE AUTO 0.01 K/mm3 (0.00-0.10); IMMATURE GRAN PERCENT AUTO 0 % (0-1); LYMPHOCYTES PERCENT AUTO 31 % (21-46); MONOCYTES ABSOLUTE AUTO 0.51 K/mm3 (0.16-1.47); MONOCYTES PERCENT AUTO 11 % (4-13); Mean Corpuscular HGB 30.3 pg (26.0-34.0); Mean Corpuscular HGB Conc 30.8 g/dL (31.5-36.5); Mean Corpuscular Volume 98 fL (80-100); Mean Platelet Volume 9.8 fL (9.1-12.4); NEUTROPHILS ABSOLUTE AUTO 2.48 K/mm3 (1.96-9.15); NEUTROPHILS PERCENT AUTO 52 % (41-73); Platelet Count 238 K/mm3 (150-400); RDW Coefficient Variation 13.4 % (11.7-14.2); RDW Standard Deviation 47.5 fL (35.1-46.3); White Blood Cell Count 4.81 K/mm3 (4.00-11.30)
--- NOTE | 2019-04-26 05:55 | NUR ---
SHIFT SUMMARY PT WAS AGITATED, RESTLESS, ANXIOUS, TRYING TO LEAVE STATING SHE HAD"TO GO TO THE PARK W/YAMINI" AROUND 2330, SHE SET OFF THE BED ALARM MULTIPLE TIMES & ATTEMPTED TO GET OOB W/O HELP, READ PREVIOUS NOTE. GAVE IV HALDOL & PT HAS BEEN VERY DROWSY THIS AM, STATES "I JUST WANT TO GET MORE SLEEP." PT AOX2, UNAWARE PLACE OR YEAR, VERY FORGETFUL & IMPULSIVE @TIMES. VSS. DENIES PAIN, N/V OR DYSPNEA @REST. ON 3.5L O2, E/U RESPIRATIONS. CALL LIGHT IN REACH, DOES NOT USE. HAS BEEN @BEDSIDE T/O NIGHT. PLEASENT & COOPERATIVE W/CARE. WCTM.
[2019-04-26 06:10] LABS: Alanine Aminotransfer (ALT/SGP 20 U/L (12-78); Albumin, Blood 2.7 g/dL (3.4-5.0); Albumin/Globulin Ratio 0.8 (0.8-1.8); Alk Phos 39 U/L (50-136); Anion Gap 6 mmol/L (6-16); Aspartate Aminotrans (AST/SGOT 16 U/L (12-37); Bilirubin, Total 0.4 mg/dL (0.1-1.0); Blood Urea Nitrogen 11 mg/dL (8-24); Bun/Creatinine Ratio 15.3 (12.0-20.0); CO2, Blood 27 mmol/L (21-32); Chloride, Blood 114 mmol/L (98-108); Creatinine, Blood 0.72 mg/dL (0.40-1.00); Globulin, Blood 3.4 g/dL (2.2-4.0); Glomerular Filtration Rate >60 (60-); Glucose, Blood 85 mg/dL (70-99); Potassium, Blood 3.8 mmol/L (3.5-5.5); Sodium, Blood 147 mmol/L (136-145); Total Protein, Blood 6.1 g/dL (6.4-8.2)
--- NOTE | 2019-04-26 17:03 | NUR ---
Obtained permission from patient to work with her on 04/27/19 in the morning.
--- NOTE | 2019-04-26 17:34 | NUR ---
NO ACUTE ISSUES NOTED AT THIS TIME. PATIENT IS IMPULSIVE AND IS CONSTANTLY SETTING OFF THE CHAIR ALARM UNLESS HER IS IN THE ROOM WITH HER. wHEN HE LEAVE SHE CALL HIM AND ASKS STAFF WHEN HE IS COMING BACK AND HER AGITATION INCREASES THE LONGER HE IS AWAY. PATIENT ASKS TO USE THE RESTROOM AND IS STEADY BUT SHUFFLE HER FEET WHEN USING THE WALKER. NO CURRENT COMPLAINTS OF PAIN OR DISCOMFORT ARE NOTED. WILL CONTINUE TO MONITOR FOR CHANGES.
--- NOTE | 2019-04-26 22:56 | NUR ---
MORE CONFUSED NOTIFIED BY CAMERA MONITOR PT ATTEMTING TO GET OOB. ONCE IN ROOM PT STATES SHE IS "JUST TRYING TO FINISH THE SEWING." INFORMED PT THERE IS NO SEWING & SHE IS [facility]OSPITAL. THEN PT STARTS PICKING AT BLANKETS SAYING "IM JUST TRYING TO GET MY WATCH," THERE WAS NO WATCH IN BED & STATES PT DID NOT HAVE A WATCH ON. AMBULATED TO RESTROOM & BACK TO BED. CALL LIGHT IN REACH, BED ALARM IN PLACE, WILL CONTINUE TO MONITOR FOR INCREASED AGITATION OR CONFUSION.
--- NOTE | 2019-04-27 05:55 | NUR ---
SOMNOLENT/SHIFT SUMMARY PT IS VERY SOMNOLENT THIS AM. OPENS EYES FOR 2.5 SECONDS W/LOUD VERBAL SIMULI THEN FALLS RIGHT BACK TO SLEEP. PUPILS ROUND & REACT TO LIGHT, INTITIAL BP LOW @82/42, AFTER REPOSITIONING W/FEET ELEVATED & ATTEMPTING TO AWAKEN PT BP INCREASED TO 108/63. THE REST OF VITALS ARE STABLE, AFEBRILE. PT ABLE TO WISPER HER NAME, LIGHTLY SEMICONDUCTOR PACKAGES TESTER W/HANDS, WIGGLE FEET & BRIEFLY SMILE- WHEN ASKED TO DO THESE TASKS SHE FALLS ASLEEP BETWEEN EACH TASK. CBG @91 THIS AM. PT RECIEVED INCREASED DOSE OF 100MG SEROQUEL LAST NIGHT PER ORDERS. NOTIFIED & DISCUSSED CHANGE IN PT W/CHARGE NURSE ZOEY TREVIZO & I WILL INFORM ONCOMING NURSE. PT HAS NOT TRIED GETTING OOB SINCE LAST NIGHT AROUND 2300 & HAS BEEN SLEEPING SOUNDLY SINCE. VERY CONFUSED LAST NIGHT, AOX2, DID NOT KNOW PLACE, SITUATION OR YEAR. HAS NO S/S OF PAIN, N/V, OR DYSPNEA. ON 3L O2 W/NC & SPO2 >90%. CALL LIGHT IN REACH & HAS BEEN AT BEDSIDE T/O NIGHT. WCTM.
--- NOTE | 2019-04-27 16:15 | NUR ---
ALERT TO SELF AND FAMILY. CONFUSED T/O THE DAY. AT TIMES THINKS SHE IS AT HOME. HAS BEEN VISITING MOST OF DAY AND JUST LEFT AND WILL NOT BE BACK TONIGHT. SETS ALARMS OFF OFTEN. DOES NOT USE CALL LIGHT. STEADY BUT SLOW SHUFFLE IN ROOM USING WALKER, GAIT BELT AND ONE PERSON ASSIST. TM
--- NOTE | 2019-04-27 23:24 | NUR ---
ALTHOUGH PT RECEIVED ALL HS MEDS, CONTINUED TO MAKE MULTIPLE ATTEMPTS TO GET OUT OF BED. NUMEROUS ATTEPTS BY STAFF TO REDIRECT HER AND PROVIDE OTHER THINGS TO DETER HER, SHE CONTINUED TO TRY TO GET OUT OF BED. PRN OF SERAQUEL ADMINISTERED PER MD ORDERS - SEE MAR FOR DETAILS. WILL CONTINUE TO MONIOR. CALL LIGHT IN REACH. RAILS UP X 3.
--- NOTE | 2019-04-28 01:00 | NUR ---
PT RESTING QUIETLY AT THIS WRITING. PRN EFFECTIVE. CALL LIGHT IN REACH.
--- NOTE | 2019-04-28 04:09 | NUR ---
HAS BEEN RESTING QUIETLY SINCE LAST ENTRY. NO COMPLAINTS VOICED. NO NOTED S/S ACUTE DISTRESS. CALL LIGHT IN REACH. OBSERVATION AND MONITORING CONTINUES.
--- NOTE | 2019-04-28 17:07 | NUR ---
SHIFT SUMMARY- PT IS PLESANT AND COOPERATIVE. HER WAS AT THE BEDSIDE FOR MOST OF THIS SHIFT. PROVIDED COLORING SHEETS. PT AMBULATED WITH PHYSICAL THERAPY AND OT. SHE ATTEMPTS TO GET UP ON HER OWN. SHE IS EATING AND DRINKING WELL. PT TAKES MEDICATIONS WHOLE IN APPLE SAUCE. PT REFUSED A SHOWER THIS MORNING.
[2019-04-29] MEDS ORDERED: GABA300 PO (17:27)
[2019-04-29] MEDS ORDERED: SEROQUEL100 MG PO (17:28)
--- NOTE | 2019-04-29 18:17 | NUR ---
PT DISCHARGED FROM UNIT. PT LEFT VIA WHEEL CHAIR WITH HER . MEDICATIONS FAXED TO PHARMACY. IV REMOVED. DISCHARGE INSTRUCTIONS REVIEWED, NO QUESTIONS AT THIS TIME
== END 2019-04-29 18:14 | disposition home health service (06) | DRG 689 ==
LOC: ER 09:14 → MEDS 09:15
PROVIDERS: Emergency Medicine; Internal Medicine; Pharmacist; Specialist; ADMIT Internal Medicine
PROC: 009U3ZX Drainage of Spinal Canal, Percutaneous Approach, Diagnostic (ICD-10-PCS; principal; 2019-04-21)
PROC: B01BZZZ Fluoroscopy of Spinal Cord (ICD-10-PCS; 2019-04-21)
DX: N39.0 Urinary tract infection, site not specified (principal); G93.41 Metabolic encephalopathy; J96.11 Chronic respiratory failure with hypoxia; F32.3 Major depressive disorder, single episode, severe with psychotic features; Z68.41 Body mass index [BMI] 40.0-44.9, adult; Z87.891 Personal history of nicotine dependence; Z79.84 Long term (current) use of oral hypoglycemic drugs; L40.9 Psoriasis, unspecified; E03.9 Hypothyroidism, unspecified; G47.33 Obstructive sleep apnea (adult) (pediatric); J44.9 Chronic obstructive pulmonary disease, unspecified; F32.9 Major depressive disorder, single episode, unspecified; E11.9 Type 2 diabetes mellitus without complications
CPT/HCPCS: 36415; 36416; 36600; 62270; 70450; 73060; 73562-RT; 77003; 80048; 80053; 80164; 80202; 81001; 81003; 82565; 82803; 82945; 82947; 84157; 85025; 85610; 85730; 86592; 87040; 87070; 87077; 87086; 87186; 87205; 87483; 89051; 92526; 92610; 93005; 93010; 94640; 94760; 94762; 96361; 96365; 96366; 96367; 96372; 96374; 96375; 96376; 97110; 97116; 97162; 97166; 97530; 97535; 99285-25; A9270; A9270-GY; G0378; J0696; J1200; J1630; J1650; J2060; J2543; J3370; J7030; J7050; P9612

== ENCOUNTER 2019-05-18 00:45 | Observation (INO) | payer OTHER ==
[~2019-05-18] VITALS: Ht 154.9 cm; Wt 121.8 kg
[~2019-05-18 00:45] MED LIST changes: +ABAT250V; +ACET325 PO; +Accuneb1.25 MG/3 INH; +CALCIUM 600-VI1 EAC2 PO; +CELEXA PO; +CENTRUM SILVER1 EAC2 PO; +CO Q-10100 MG PO; +CYAN500 PO; +Celexa40 MG PO; +DIVA250ER PO; +ENOX40I SC; +LOSARTAN POTAS100 MG PO; +MELA3 PO; +MIRALAX17 GM PO; +Pedi-Dri 100,0060 GM TOP; +SEROQUEL100 MG PO; +SEROQUEL25 MG PO; +Senna S Tablet1 EACH PO; +TAMS.4ER PO; +VIVARIN PO
[2019-05-18 01:27] LABS: BASOPHILS ABSOLUTE AUTO 0.03 K/mm3 (0.00-0.23); BASOPHILS PERCENT AUTO 0 % (0-2); EOSINOPHILS ABSOLUTE AUTO 0.16 K/mm3 (0.00-0.68); EOSINOPHILS PERCENT AUTO 2 % (0-6); Hematocrit 29.3 % (33.0-51.0); Hemoglobin 9.2 g/dL (11.5-16.0); IMMATURE GRAN ABSOLUTE AUTO 0.04 K/mm3 (0.00-0.10); IMMATURE GRAN PERCENT AUTO 0 % (0-1); LYMPHOCYTES ABSOLUTE AUTO 1.22 K/mm3 (0.84-5.20); LYMPHOCYTES PERCENT AUTO 13 % (21-46); MONOCYTES ABSOLUTE AUTO 0.65 K/mm3 (0.16-1.47); MONOCYTES PERCENT AUTO 7 % (4-13); Mean Corpuscular HGB 30.7 pg (26.0-34.0); Mean Corpuscular HGB Conc 31.4 g/dL (31.5-36.5); Mean Corpuscular Volume 98 fL (80-100); Mean Platelet Volume 10.7 fL (9.1-12.4); NEUTROPHILS ABSOLUTE AUTO 7.39 K/mm3 (1.96-9.15); NEUTROPHILS PERCENT AUTO 78 % (41-73); Platelet Count 214 K/mm3 (150-400); RDW Coefficient Variation 14.5 % (11.7-14.2); White Blood Cell Count 9.49 K/mm3 (4.00-11.30)
[2019-05-18 01:42] LABS: Alanine Aminotransfer (ALT/SGP 20 U/L (12-78); Albumin, Blood 2.8 g/dL (3.4-5.0); Albumin/Globulin Ratio 0.8 (0.8-1.8); Alk Phos 51 U/L (50-136); Anion Gap 4 mmol/L (6-16); Aspartate Aminotrans (AST/SGOT 44 U/L (12-37); Bilirubin, Total 0.4 mg/dL (0.1-1.0); Blood Urea Nitrogen 23 mg/dL (8-24); Bun/Creatinine Ratio 21.5 (12.0-20.0); CO2, Blood 27 mmol/L (21-32); Chloride, Blood 109 mmol/L (98-108); Creatinine, Blood 1.07 mg/dL (0.40-1.00); Globulin, Blood 3.6 g/dL (2.2-4.0); Glomerular Filtration Rate 54 (60-); Glucose, Blood 127 mg/dL (70-99); Potassium, Blood 5.7 mmol/L (3.5-5.5); Sodium, Blood 140 mmol/L (136-145); Total Protein, Blood 6.4 g/dL (6.4-8.2); Troponin I <0.015 ng/mL (0.000-0.040)
[2019-05-18 01:53] LABS: PCO2 Arterial 46.4 mmHg (35-45); PO2 Arterial 70.8 mmHg (80-100); pH Blood Arterial 7.36 (7.35-7.45)
[2019-05-18 02:04] LABS: Source, Urine Catheter
[2019-05-18 02:11] LABS: Bilirubin, Urine Neg (Neg); Blood, Urine Neg (Neg); Glucose Qualitative, Urine Neg (Neg); Ketones, Urine Neg (Neg); Leukocyte Esterase, Urine 1+ (Neg); Nitrite, Urine Neg (Neg); Protein, Urine 1+ (Neg); Urobilinogen, Urine NORM (Normal)
[2019-05-18 02:15] LABS: Appearance, Urine Clear (Clear); Color, Urine Yellow (P-Yellow)
[2019-05-18 02:17] LABS: Amorphous Light (0-Heavy); Bacteria Few /hpf; Mucus Mod (0-Heavy); Red Blood Cells, Urine Not Seen /hpf (0-2); Squamous Epithelial Cells Few /hpf (Few); White Blood Cells, Urine 0-2 /hpf (0-5)
[2019-05-18 02:19] LABS: U Amphetamine Screen Not Detected; U Barbituate Screen Not Detected; U Benzodiazapine Screen Not Detected; U Cocaine Screen Not Detected; U Methadone Screen Not Detected; U Methamphetamine Screen Not Detected; U Opiates Screen Not Detected
[2019-05-18 02:20] LABS: U Buprenorphine Screen Not Detected; U Cannabinoids Screen Not Detected; U Oxycodone Screen DETECTED; U Propoxyphene Screen Not Detected
[2019-05-18 06:28] LABS: Hematocrit 27.1 % (33.0-51.0); Hemoglobin 8.3 g/dL (11.5-16.0); Mean Corpuscular HGB 30.5 pg (26.0-34.0); Mean Corpuscular HGB Conc 30.6 g/dL (31.5-36.5); Mean Corpuscular Volume 100 fL (80-100); Mean Platelet Volume 9.2 fL (9.1-12.4); Platelet Count 168 K/mm3 (150-400); RDW Coefficient Variation 14.6 % (11.7-14.2); RDW Standard Deviation 52.2 fL (35.1-46.3); Red Blood Cell Count 2.72 M/mm3 (3.80-5.20); White Blood Cell Count 9.07 K/mm3 (4.00-11.30)
[2019-05-18 06:46] LABS: Bun/Creatinine Ratio 21.4 (12.0-20.0); Calcium, Blood 8.4 mg/dL (8.5-10.1); Creatinine, Blood 1.03 mg/dL (0.40-1.00)
--- NOTE | 2019-05-18 09:00 | NUR ---
ASSUMED CARE: PT TRANSFERRED FROM ED TO ROOM PCU 9. SHE AROUSES TO STIMULI AND MUMBLES AT STAFF. FEW WORDS NOTED BUT MOSTLY GARBLED. NSR 80S, APPEARS TO BE SNORING, LETHARGIC. NO ACUTE NEEDS OR CONCERNS AT THIS TIME. BILATERAL SCDS IN PLACE
[2019-05-18] MEDS ORDERED: IBUP800 PO (10:35)
[2019-05-18] MEDS ORDERED: METF500 PO (10:44)
[2019-05-18] MEDS ORDERED: HYDR1TAB94 PO (10:45)
[2019-05-18] MEDS ORDERED: METO25ER PO (10:46)
--- NOTE | 2019-05-18 11:36 | NUR ---
DR MARRUFO CAME TO SEE PT AND IS AWARE THAT MED REC IS COMPLETED AND HOME MEDS NEED ORDERED. ALSO AWARE THAT RECORD STATES PT USES CPAP AT HOME. CPAP ORDERED
--- NOTE | 2019-05-18 17:14 | NUR ---
PT TRANSFERRED TO ROOM 359. TRANSFERRED VIA WHEEL CHAIR BY HOSPITAL STAFF.
--- NOTE | 2019-05-18 18:20 | NUR ---
SUMMARY PT TRANSFERRED FROM PCU, PT ABLE TO TRANSFER WITH A ONE PERSON ASSIST, PT OCC CONFUSED, WAS ABLE TO USE HER CALL LIGHT APPROPRIATELY, ORIENTED PT TO THE ROOM, NO ACUTE CHANGES, WILL CONT TO MONITOR
--- NOTE | 2019-05-19 04:04 | NUR ---
SHIFT SUMMARY ADMITTED FOR TOXIC METABOLIC ENCEPHALOPATHY. FULL CODE. PT INITIALLY LETHARGIC AND HAD GARBLED SPEECH. NARCAN ADMINISTERED IN ER. PT WAS ON PSYCHOTROPIC AND OPIOID MEDICATIONS AT HOME (ALSO CONSIDER TOX SCREEN POSITIVE FOR OXYCODONE & TRICYCLIC ANTIDEPRESSANTS). PT IS ACHS, MED SS, CARDIAC/ADA DIET, 1 ASSIST TO BSC, 2 LPM O2 VIA NC. HX: SUBARACHNOID HEMORRHAGE/SUBDURAL HEMATOMA - CRANIOTOMY & MANUGRAPHER SHUNT @ [facility], ORIF, RT KNEE REPLACEMENT, SHARRON (REFUSED CPAP), DM2, HTN, COPD. LIVES W/. FORGETFUL, CONFUSED, CALLS OUT FREQUENTLY. FOLLOWING LACTIC ACID, PROCALCITONIN LABS AND BLOOD CULTURES.
--- NOTE | 2019-05-19 11:59 | NUR ---
SPOKE TO DR MARRUFO- PER DR ORDER NO MORE IV ABX TO BE GIVEN, DC TELE AND NO IV ACCESS ORDERED. IV DC'D. TELE RETURNED TO PCU VIA TUBE.
--- NOTE | 2019-05-19 13:15 | NUR ---
SPOKE TO DR MARRUFO- PT HOME MEDICATION LIST WAS PROVIDED BY THE PT SPOUSE. HOME MEDICATION REC WAS UPDATED. PER DR MARRUFO PT IS TO CONTINUE HOME MEDS ORDERED EXCEPT FOR THE CLONOPIN DOSE THAT WAS CHANGED. DISCHARGE MED REC EDITED ACCORDINGLY.
[2019-05-19] MEDS ORDERED: METF500 PO (13:25)
--- NOTE | 2019-05-19 15:45 | NUR ---
DISCHARGE NOTE- PT AND SPOUSE WERE GIVEN VERBAL AND WRITTEN DISCHARGE INSTRUCTIONS AND ACKNOWLEDGED UNDERSTANDING OF THEM. PT IV AND TELE DC'D PRIOR TO DISCHARGE AND IV DC'D PRIOR TO DISCHARGE. PT TAKEN TO THE PT ENTRANCE [facility] BY ESCORT VOLUNTEER. NO FURTHER QUESTIONS AT THE TIME OF DISCHARGE.
== END 2019-05-19 13:44 | disposition home health service (06) ==
LOC: ER 00:45 → ERHOLD 00:46 → PCU 00:46 → ER 00:46 → PCU 00:46 → MEDS 08:50 → PCU 08:53 → MEDS 17:20
PROVIDERS: Emergency Medicine; ADMIT Hospitalist
DX: G92 Toxic encephalopathy (principal); I95.89 Other hypotension; G47.33 Obstructive sleep apnea (adult) (pediatric); J44.9 Chronic obstructive pulmonary disease, unspecified; F32.9 Major depressive disorder, single episode, unspecified; I10 Essential (primary) hypertension; E03.9 Hypothyroidism, unspecified; E66.01 Morbid (severe) obesity due to excess calories; Z91.19 Patient's noncompliance with other medical treatment and regimen; Z88.8 Allergy status to other drugs, medicaments and biological substances; Z87.891 Personal history of nicotine dependence; Z68.42 Body mass index [BMI] 45.0-49.9, adult
CPT/HCPCS: 36415; 36600; 51702; 70450; 71045; 80048; 80053; 81001; 82803; 82947; 83605; 84145; 84484; 85025; 85027; 87040; 87086; 93005; 93010; 94640; 94762; 96361-59; 96365-59; 96366; 96366-59; 96367; 96375-59; 96376; 96376-59; 99285-25; A9270-GY; G0378; J2310; J2405; J2543; J3370; J7030; J7050

== ENCOUNTER → 2020-03-12 | Outpatient (CLI) | payer OTHER ==
[~2020-03-12] MED LIST changes: +ATOR10 PO; +AZIT500 PO; +CEFP200 PO; +CLON.5 PO; +IBUP800 PO; +METO25ER PO; +NEURONTIN300 MG PO; +PRED20 PO
== END | disposition home or self-care (01) ==
LOC: LAB EV 15:02 → LAB SHORT 15:02
DX: N90.4 Leukoplakia of vulva (principal)
CPT/HCPCS: 87070; 87106; 87205

== ENCOUNTER → 2020-04-03 | Outpatient (CLI) | payer OTHER | END | disposition home or self-care (01) | LOC: PLD 11:02 → LAB SHORT 11:02 | DX: L98.9 Disorder of the skin and subcutaneous tissue, unspecified (principal) | CPT/HCPCS: 88305; 88312 ==

== ENCOUNTER 2020-05-08 06:11 | Inpatient (IN) | payer OTHER ==
[~2020-05-08] VITALS: Ht 162.6 cm; Wt 119.1 kg
[~2020-05-08 06:11] MED LIST changes: -ATOR10 PO; -AZIT500 PO; -CEFP200 PO; -CLON.5 PO; -NEURONTIN300 MG PO; -PRED20 PO
[2020-05-08 06:32] LABS: BASOPHILS ABSOLUTE AUTO 0.02 K/mm3 (0.00-0.23); BASOPHILS PERCENT AUTO 0 % (0-2); EOSINOPHILS ABSOLUTE AUTO 0.03 K/mm3 (0.00-0.68); EOSINOPHILS PERCENT AUTO 0 % (0-6); Hematocrit 36.8 % (33.0-51.0); Hemoglobin 11.9 g/dL (11.5-16.0); IMMATURE GRAN ABSOLUTE AUTO 0.05 K/mm3 (0.00-0.10); IMMATURE GRAN PERCENT AUTO 1 % (0-1); LYMPHOCYTES ABSOLUTE AUTO 0.59 K/mm3 (0.84-5.20); LYMPHOCYTES PERCENT AUTO 8 % (21-46); MONOCYTES ABSOLUTE AUTO 0.41 K/mm3 (0.16-1.47); MONOCYTES PERCENT AUTO 6 % (4-13); Mean Corpuscular HGB 30.7 pg (26.0-34.0); Mean Corpuscular HGB Conc 32.3 g/dL (31.5-36.5); Mean Corpuscular Volume 95 fL (80-100); NEUTROPHILS ABSOLUTE AUTO 6.07 K/mm3 (1.96-9.15); NEUTROPHILS PERCENT AUTO 85 % (41-73); Platelet Count 260 K/mm3 (150-400); RDW Coefficient Variation 13.5 % (11.7-14.2); Red Blood Cell Count 3.87 M/mm3 (3.80-5.20); White Blood Cell Count 7.17 K/mm3 (4.00-11.30)
[2020-05-08 07:21] LABS: Influenza A, PCR Negative (NEGATIVE); Influenza B, PCR Negative (NEGATIVE); Resp Syncytial Virus, PCR Negative (NEGATIVE); SARS-Cov-2 (COVID-19) PCR, MMC Negative (NEGATIVE)
[2020-05-08 07:23] LABS: Source, Urine Clean Catch
[2020-05-08 07:23] LABS: Alanine Aminotransfer (ALT/SGP 15 U/L (12-78); Albumin/Globulin Ratio 0.7 (0.8-1.8); Alk Phos 69 U/L (50-136); Anion Gap 8 mmol/L (6-16); Aspartate Aminotrans (AST/SGOT 11 U/L (12-37); Bilirubin, Total 0.8 mg/dL (0.1-1.0); Blood Urea Nitrogen 12 mg/dL (8-24); Bun/Creatinine Ratio 16.9 (12.0-20.0); CO2, Blood 28 mmol/L (21-32); Calcium, Blood 8.6 mg/dL (8.5-10.1); Chloride, Blood 106 mmol/L (98-108); Creatinine, Blood 0.71 mg/dL (0.40-1.00); Globulin, Blood 4.1 g/dL (2.2-4.0); Glomerular Filtration Rate >60 (60-); Glucose, Blood 102 mg/dL (70-99); Potassium, Blood 3.8 mmol/L (3.5-5.5); Sodium, Blood 142 mmol/L (136-145); Total Protein, Blood 7.1 g/dL (6.4-8.2)
[2020-05-08 07:31] LABS: Bilirubin, Urine Neg (Neg); Blood, Urine 1+ (Neg); Glucose Qualitative, Urine Neg (Neg); Ketones, Urine 1+ (Neg); Leukocyte Esterase, Urine Neg (Neg); Nitrite, Urine Neg (Neg); Protein, Urine Neg (Neg); Specific Gravity, Urine 1.015 (1.003-1.022); Urobilinogen, Urine 1+ (Normal)
[2020-05-08 07:37] LABS: Appearance, Urine Clear (Clear); Color, Urine Yellow (P-Yellow)
[2020-05-08 07:39] LABS: Bacteria Few /hpf; Red Blood Cells, Urine 0-2 /hpf (0-2); Squamous Epithelial Cells Few /hpf (Few); White Blood Cells, Urine 0-2 /hpf (0-5)
[2020-05-08] MEDS ORDERED: ATOR10 PO (11:48)
[2020-05-08] MEDS ORDERED: CLON.5 PO (11:49)
[2020-05-08] MEDS ORDERED: GABA300 PO (11:50)
[2020-05-08] MEDS ORDERED: NEURONTIN300 MG PO (11:50)
--- NOTE | 2020-05-08 12:48 | NUR ---
RECIEVED REPORT FROM JOHN VILLANUEVA RN, @ 6511. PATIENT TO BE TRANSFERED TO ROOM 331
--- NOTE | 2020-05-08 14:56 | NUR ---
PATIENT ARRIVED TO ROOM 331 AT 1311. SHE TRANSFERED TO HOSPITAL BED FROM / WITH ONE PERSON MAX ASSIST. SOB ON 5L 02 NC; 3L O2 NC AT BASELINE. ALERT AND ORIENTED. ADMISSION H&P AND ASSESSMENT COMPLETED WITH PATIENT ASSIST. PATIENT IN BED AT THIS TIME RESTING AND CALL LIGHT WITHIN REACH. IS AT BEDSIDE.
--- NOTE | 2020-05-08 16:32 | NUR ---
PATIENT HAS BEEN PLEASANT AND COOPERATIVE WITH STAFF. CALLS FOR STAFF ASSIST NEEDED. STARTED ON IV STEROIDS. TRANSFERS SHORT DISTANCES WITH MINIMAL ASSIST FROM STAFF. IS AT BEDSIDE AT THIS TIME. CALL LIGHT WITHIN REACH.
--- NOTE | 2020-05-09 04:16 | NUR ---
SHIFT SUMMARY NO ACUTE CHANGES THIS SHIFT, NO C/O ANY KIND, A&O, COOPERATIVE W/CARE, HAS BEEN MINIMAL 1 ASSIST TO BR AND USING CALL LIGHT APPROP TO REQ ASSISTANCE, SLEEPING AT THIS TIME, CALL LIGHT IN REACH, BED ALARM ACTIVE, WILL CONT TO MONITOR UNTIL REPORT GIVEN TO DAY RN.
[2020-05-09 05:37] LABS: BASOPHILS ABSOLUTE AUTO 0.02 K/mm3 (0.00-0.23); BASOPHILS PERCENT AUTO 0 % (0-2); EOSINOPHILS PERCENT AUTO 0 % (0-6); Hematocrit 35.3 % (33.0-51.0); Hemoglobin 11.5 g/dL (11.5-16.0); IMMATURE GRAN ABSOLUTE AUTO 0.07 K/mm3 (0.00-0.10); IMMATURE GRAN PERCENT AUTO 1 % (0-1); LYMPHOCYTES ABSOLUTE AUTO 0.51 K/mm3 (0.84-5.20); LYMPHOCYTES PERCENT AUTO 4 % (21-46); MONOCYTES ABSOLUTE AUTO 0.24 K/mm3 (0.16-1.47); MONOCYTES PERCENT AUTO 2 % (4-13); Mean Corpuscular HGB 31.1 pg (26.0-34.0); Mean Corpuscular HGB Conc 32.6 g/dL (31.5-36.5); Mean Corpuscular Volume 95 fL (80-100); Mean Platelet Volume 9.1 fL (9.1-12.4); NEUTROPHILS ABSOLUTE AUTO 11.12 K/mm3 (1.96-9.15); NEUTROPHILS PERCENT AUTO 93 % (41-73); Platelet Count 213 K/mm3 (150-400); RDW Coefficient Variation 13.2 % (11.7-14.2); White Blood Cell Count 11.96 K/mm3 (4.00-11.30)
[2020-05-09 05:54] LABS: Anion Gap 6 mmol/L (6-16); Blood Urea Nitrogen 17 mg/dL (8-24); Bun/Creatinine Ratio 27.6 (12.0-20.0); CO2, Blood 29 mmol/L (21-32); Calcium, Blood 8.9 mg/dL (8.5-10.1); Chloride, Blood 106 mmol/L (98-108); Creatinine, Blood 0.62 mg/dL (0.40-1.00); Glomerular Filtration Rate >60 (60-); Glucose, Blood 188 mg/dL (70-99); Potassium, Blood 3.5 mmol/L (3.5-5.5); Sodium, Blood 141 mmol/L (136-145)
--- NOTE | 2020-05-09 15:58 | NUR ---
PATIENT HAS BEEN ALERT AND ORIENTED WITH MILD FORGETFULNESS TODAY. WITH THE EXCEPTION OF THE FIRST BP CHECK THIS MORNING, WHICH WAS ELEVATED, VITALS HAVE BEEN STABLE. BP WAS RECHECKED AND SEEMED FINE UPON REASSESSMENT. NO COMPLAINTS OF PAIN OR DISCOMFORT THIS SHIFT. CONTINUES ON IV ABX WITHOUT S/SX OF ADVERSE REACTIONS NOTED OR REPORTED. AMBULATES WITH A STEADY GAIT WITH FWW AND SBA. NO ACUTE CHANGES NOTED THIS SHIFT. PATIENT WORKING WITH THERAPY AT THIS TIME.
--- NOTE | 2020-05-09 18:03 | NUR ---
ADMIT: 05/08/20 DISCHARGE: DX: arf CC: [email or web address] ADMIT: 05/18/19 DISCHARGE: 05/19/19 DX: Toxic Metabolic Encephalopathy CC: [email or web address] ADMIT: 04/18/19 DISCHARGE: 04/29/19 DX: Encephalopathy UTI CC: ROSS CALL: met with Dayna and her prior to discharge, call at home for ross RESIDENCE: home with CAREGIVER: self Bay Cherry ()- Gudelia Winters (daugther)- DX:copd, htn, anxiety and depression disorder, steroid induce diabetes, djd DME: Home oxygen 24 hours, normally 3 l/m. Going home on 4 l/m today 05/20 CPAP, Walker - all dme from [email or web address]. 01/26/19 ordered 22 inch wheelchair and tono walker from [email or web address] CCM: 2018 referral HOME HEALTH: 05/19/19 resume home health services with [facility] SUMMARY: ADMIT: 05/08/20 05/09/20 Met with Dayna and her in patient room. Lives at home with Oxygen at home, dme needs met at this time. interested in a hand rail to go from the bed to the bathroom. I am not aware of insurance coverage for this type of need. Suggested [employer] for ideas or suggestions of insurance coverage. Possibly interested in home health, is having some weakness, hard to get out of bed at this time. can take her home, pharmacy services as needed, Drive to follow up appointment. Will follow for possible discharge on Thursday. cp PROBLEMS: 1: Acute respiratory failure with hypoxia
--- NOTE | 2020-05-10 04:39 | NUR ---
SHIFT SUMMARY NO ACUTE CHANGES THIS SHIFT, NO C/O ANY KIND, SLEPT ON/OFF T/O THE NIGHT, UP SEVERAL TIMES TO USE BR W/MINIMAL ST BY ASSIST & FWW, USES CALL LIGHT APPROP, SLEEPING AT THIS TIME, CALL LIGHT IN REACH, WILL CONT TO MONITOR UNTIL REPORT GIVEN TO DAY RN.
[2020-05-10 05:56] LABS: BASOPHILS ABSOLUTE AUTO 0.01 K/mm3 (0.00-0.23); BASOPHILS PERCENT AUTO 0 % (0-2); EOSINOPHILS PERCENT AUTO 0 % (0-6); Hematocrit 33.9 % (33.0-51.0); Hemoglobin 11.3 g/dL (11.5-16.0); IMMATURE GRAN ABSOLUTE AUTO 0.13 K/mm3 (0.00-0.10); IMMATURE GRAN PERCENT AUTO 1 % (0-1); LYMPHOCYTES ABSOLUTE AUTO 0.63 K/mm3 (0.84-5.20); LYMPHOCYTES PERCENT AUTO 5 % (21-46); MONOCYTES ABSOLUTE AUTO 0.39 K/mm3 (0.16-1.47); MONOCYTES PERCENT AUTO 3 % (4-13); Mean Corpuscular HGB 31.9 pg (26.0-34.0); Mean Corpuscular HGB Conc 33.3 g/dL (31.5-36.5); Mean Corpuscular Volume 96 fL (80-100); Mean Platelet Volume 9.3 fL (9.1-12.4); NEUTROPHILS ABSOLUTE AUTO 11.02 K/mm3 (1.96-9.15); NEUTROPHILS PERCENT AUTO 90 % (41-73); Platelet Count 257 K/mm3 (150-400); RDW Coefficient Variation 13.1 % (11.7-14.2); Red Blood Cell Count 3.54 M/mm3 (3.80-5.20); White Blood Cell Count 12.18 K/mm3 (4.00-11.30)
[2020-05-10 06:14] LABS: Anion Gap 6 mmol/L (6-16); Blood Urea Nitrogen 31 mg/dL (8-24); Bun/Creatinine Ratio 46.3 (12.0-20.0); CO2, Blood 30 mmol/L (21-32); Calcium, Blood 9.2 mg/dL (8.5-10.1); Chloride, Blood 105 mmol/L (98-108); Creatinine, Blood 0.67 mg/dL (0.40-1.00); Glomerular Filtration Rate >60 (60-); Glucose, Blood 161 mg/dL (70-99); Potassium, Blood 3.6 mmol/L (3.5-5.5); Sodium, Blood 141 mmol/L (136-145)
--- NOTE | 2020-05-10 13:52 | NUR ---
HER O2 IS AT HER BASELINE, 3L/MIN. ROUNDED THIS AM. THE PATIENT WALKS WELL WITH A WALKER. SHE HOPES TO BE ABLE TO GO HOME TODAY. NO COMPLAINTS.
[2020-05-10] MEDS ORDERED: AZIT500 PO (16:35)
[2020-05-10] MEDS ORDERED: CEFP200 PO (16:37)
[2020-05-10] MEDS ORDERED: PRED20 PO (16:37)
--- NOTE | 2020-05-10 17:30 | NUR ---
SUMMARY: ADMIT: 05/08/20 05/10/20 Discharge home, to drive her. Worked with PT, back to baseline. Oxygen back to baseline of 3 l/m. Discussed transition of care call from [place] for follow up and scheduled 1 week appointment. no addtional care needs identified. cp
--- NOTE | 2020-05-10 18:37 | NUR ---
DISCHARGED TO HOME WITH INSTRUCTIONS AND BELONGINGS AT 1825. HER PORTABLE O2 IS IN THE CAR. SHE AND HER PATIENTLY WAITED FOR TO PUT IN HIS DC ORDER. CVSS. NO FEVER. SHE IS HAPPY TO GO HOME.
== END 2020-05-10 18:29 | disposition home health service (06) | DRG 871 ==
LOC: ER 06:11 → ERHOLD 09:43 → MEDS 13:05
PROVIDERS: Emergency Medicine; ADMIT Internal Medicine
DX: A41.9 Sepsis, unspecified organism (principal); J96.21 Acute and chronic respiratory failure with hypoxia; J18.9 Pneumonia, unspecified organism; J44.0 Chronic obstructive pulmonary disease with (acute) lower respiratory infection; E66.2 Morbid (severe) obesity with alveolar hypoventilation; F32.3 Major depressive disorder, single episode, severe with psychotic features; G93.40 Encephalopathy, unspecified; E11.9 Type 2 diabetes mellitus without complications; Z86.73 Personal history of transient ischemic attack (TIA), and cerebral infarction without residual deficits; Z79.84 Long term (current) use of oral hypoglycemic drugs; Z99.81 Dependence on supplemental oxygen; E78.5 Hyperlipidemia, unspecified; Z66 Do not resuscitate; Z68.34 Body mass index [BMI] 34.0-34.9, adult; E03.9 Hypothyroidism, unspecified; Z20.822 Contact with and (suspected) exposure to COVID-19; Z87.891 Personal history of nicotine dependence
CPT/HCPCS: 0241U; 36415; 71045; 80048; 80053; 81001; 83605; 84145; 85025; 87040; 93005; 93010; 94640; 94667; 94760; 96365; 96367; 97110; 97116; 97162; 97165; 97530; 97535; 99285-25; J0456; J0696; J1650; J2920; J7030; J7050

== ENCOUNTER 2021-08-15 07:26 | Inpatient (IN) | payer OTHER ==
[~2021-08-15] VITALS: Ht 160 cm; Wt 110.2 kg
[~2021-08-15 07:26] MED LIST changes: +ATOR10 PO; +AZIT500 PO; +CEFP200 PO; +CLON.5 PO; +NEURONTIN300 MG PO; +PRED20 PO
[2021-08-15 08:05] LABS: Base Excess Venous 7.6 mmol/L; Bicarbonate Venous 30.1 mmol/L (24.0-30.0); PCO2 Venous 50.5 mmHg (38-42); PO2 Venous 91.3 mmHg (38-42); pH Blood Venous 7.41 (7.34-7.37)
[2021-08-15 08:23] LABS: Albumin/Globulin Ratio 0.8 (0.8-1.8); Bilirubin, Total 1.2 mg/dL (0.1-1.0); Calcium, Blood 8.8 mg/dL (8.5-10.1); Creatinine, Blood 0.82 mg/dL (0.40-1.00); Globulin, Blood 3.8 g/dL (2.2-4.0); Magnesium, Blood 1.6 mg/dL (1.6-2.4); Potassium, Blood 3.6 mmol/L (3.5-5.5); Total Protein, Blood 6.8 g/dL (6.4-8.2)
[2021-08-15 08:26] LABS: BASOPHILS ABSOLUTE AUTO 0.04 K/mm3 (0.00-0.23); BASOPHILS PERCENT AUTO 0 % (0-2); EOSINOPHILS ABSOLUTE AUTO 0.02 K/mm3 (0.00-0.68); EOSINOPHILS PERCENT AUTO 0 % (0-6); Hematocrit 38.6 % (33.0-51.0); Hemoglobin 12.4 g/dL (11.5-16.0); IMMATURE GRAN ABSOLUTE AUTO 0.06 K/mm3 (0.00-0.10); IMMATURE GRAN PERCENT AUTO 1 % (0-1); LYMPHOCYTES ABSOLUTE AUTO 0.45 K/mm3 (0.84-5.20); LYMPHOCYTES PERCENT AUTO 4 % (21-46); MONOCYTES ABSOLUTE AUTO 0.65 K/mm3 (0.16-1.47); MONOCYTES PERCENT AUTO 6 % (4-13); Mean Corpuscular HGB 31.7 pg (26.0-34.0); Mean Corpuscular HGB Conc 32.1 g/dL (31.5-36.5); Mean Corpuscular Volume 99 fL (80-100); Mean Platelet Volume 10.6 fL (9.1-12.4); NEUTROPHILS ABSOLUTE AUTO 9.34 K/mm3 (1.96-9.15); NEUTROPHILS PERCENT AUTO 88 % (41-73); Platelet Count 245 K/mm3 (150-400); RDW Coefficient Variation 13.2 % (11.7-14.2); RDW Standard Deviation 47.7 fL (35.1-46.3); Red Blood Cell Count 3.91 M/mm3 (3.80-5.20); White Blood Cell Count 10.56 K/mm3 (4.00-11.30)
[2021-08-15 08:44] LABS: Source, Urine Foley catheter
[2021-08-15 08:51] LABS: Appearance, Urine Clear (Clear); Blood, Urine Neg (Neg); Color, Urine Yellow (P-Yellow); Glucose Qualitative, Urine Neg (Neg); Ketones, Urine 2+ (Neg); Leukocyte Esterase, Urine Neg (Neg); Nitrite, Urine Neg (Neg); Protein, Urine 1+ (Neg); Urobilinogen, Urine 3+ (Normal)
[2021-08-15 09:03] LABS: Bilirubin, Urine 1+ (Neg)
[2021-08-15 09:23] LABS: Influenza A, PCR NEGATIVE (NEGATIVE); Influenza B, PCR NEGATIVE (NEGATIVE); Resp Syncytial Virus, PCR NEGATIVE (NEGATIVE); SARS-Cov-2 (COVID-19) PCR, MMC NEGATIVE (NEGATIVE)
[2021-08-15] MEDS ORDERED: FURO20 PO (10:29)
[2021-08-15] MEDS ORDERED: POTCHL20ER PO (10:29)
[2021-08-15] MEDS ORDERED: DORZOLAMIDE 2%10 M3 BOTHEYES (10:31)
--- NOTE | 2021-08-15 18:21 | NUR ---
SHIFT SUMMARY PT ADMIT FROM THE ED AROUND 1300. SHE IS ALERT AND ORIENTED BUT CONFUSED AND NEEDS REMINDED OF WHERE SHE IS. RECIEVED OTTOITHRO FOR PNEUMONIA DX. LUNG SOUNDS ARE DIMINISHED AND CRACKLES ARE PRESENT. HR IS SR 80'S. 2-3L NC, 02 >90. SHE IS INCONTINENT AND ZURITA IS IN PLACE. HER DENTURES WERE LEFT AT HOME SO DIET WAS TEMPORARILY CHANGED TO MECH SOFT. WE CONTACTED HER AND HE IS BRINGING THEM TOMORROW. WILL CONTINUE TO ASSESS AND PASS ONTO NEXT RN.
[2021-08-16 04:30] LABS: BASOPHILS ABSOLUTE AUTO 0.02 K/mm3 (0.00-0.23); BASOPHILS PERCENT AUTO 0 % (0-2); EOSINOPHILS PERCENT AUTO 0 % (0-6); Hematocrit 33.1 % (33.0-51.0); Hemoglobin 11.1 g/dL (11.5-16.0); IMMATURE GRAN ABSOLUTE AUTO 0.15 K/mm3 (0.00-0.10); IMMATURE GRAN PERCENT AUTO 1 % (0-1); LYMPHOCYTES ABSOLUTE AUTO 0.53 K/mm3 (0.84-5.20); LYMPHOCYTES PERCENT AUTO 4 % (21-46); MONOCYTES ABSOLUTE AUTO 0.45 K/mm3 (0.16-1.47); MONOCYTES PERCENT AUTO 4 % (4-13); Mean Corpuscular HGB 32.6 pg (26.0-34.0); Mean Corpuscular HGB Conc 33.5 g/dL (31.5-36.5); Mean Corpuscular Volume 97 fL (80-100); Mean Platelet Volume 10.2 fL (9.1-12.4); NEUTROPHILS ABSOLUTE AUTO 10.94 K/mm3 (1.96-9.15); NEUTROPHILS PERCENT AUTO 91 % (41-73); Platelet Count 187 K/mm3 (150-400); RDW Coefficient Variation 12.9 % (11.7-14.2); Red Blood Cell Count 3.41 M/mm3 (3.80-5.20); White Blood Cell Count 12.09 K/mm3 (4.00-11.30)
[2021-08-16 05:09] LABS: Albumin, Blood 2.5 g/dL (3.4-5.0); Anion Gap 6 mmol/L (6-16); Blood Urea Nitrogen 17 mg/dL (8-24); Bun/Creatinine Ratio 28.1 (12.0-20.0); CO2, Blood 31 mmol/L (21-32); Calcium, Blood 8.5 mg/dL (8.5-10.1); Chloride, Blood 105 mmol/L (98-108); Creatinine, Blood 0.61 mg/dL (0.40-1.00); Glomerular Filtration Rate 94 (60-); Glucose, Blood 146 mg/dL (70-99); Magnesium, Blood 1.8 mg/dL (1.6-2.4); Phosphorus, Blood 2.1 mg/dL (2.5-4.9); Potassium, Blood 3.1 mmol/L (3.5-5.5); Sodium, Blood 142 mmol/L (136-145)
--- NOTE | 2021-08-16 06:04 | NUR ---
REGIONAL CONTROLLER SUMMARY PT HAS REMAINED ALERT BUT VERY CONFUSED THIS SHIFT. PT NEEDING CONSTANT REDIRECTING AND REMINDING THAT SHE IS IN THE HOSPITAL. O2 SATS >90% ON 4L NC THIS SHIFT. BP WNL AND STABLE. PT AFEBRILE THIS SHIFT. TELE SHOWING SR IN THE 70'S W A BBB. ZURITA CATHETER PATENT AND DRAINING 1.5L CLEAR YELLOW URINE THIS SHIFT. PT ABLE TO SLEEP FOR MOST OF THE NIGHT. WILL REPORT TO ONCOMING RN.
--- NOTE | 2021-08-16 17:54 | NUR ---
SHIFT SUMMARY PT HAS BEEN SEEN BY THERAPIES TODAY. PT HAS BEEN UP IN CHAIR MULTIPLE TIMES. PT HAS BEEN CONFUSED AND HAS HAD MOMENTS OF INCREASED CONFUSION. PT WILL HAVE BOUTS OF ANXIETY WITH MINOR PARANOIA. PT IS NOT FULLY REORIENTABLE, BUT CAN BE TALKED DOWN DURING ANXIOUS PERIODS. PT HAS BEEN ON 4L NC THROUGHOUT THE DAY, THEY HAVE HAD MINOR DESATS WITH ACTIVITY (87%) THAT THEY RECOVERED FROM QUICKLY. ALL OTHER VITAL SIGNS STABLE.
[2021-08-17 04:41] LABS: BASOPHILS ABSOLUTE AUTO 0.01 K/mm3 (0.00-0.23); BASOPHILS PERCENT AUTO 0 % (0-2); EOSINOPHILS ABSOLUTE AUTO 0.01 K/mm3 (0.00-0.68); EOSINOPHILS PERCENT AUTO 0 % (0-6); Hematocrit 34.6 % (33.0-51.0); Hemoglobin 11.4 g/dL (11.5-16.0); IMMATURE GRAN ABSOLUTE AUTO 0.04 K/mm3 (0.00-0.10); IMMATURE GRAN PERCENT AUTO 0 % (0-1); LYMPHOCYTES ABSOLUTE AUTO 1.59 K/mm3 (0.84-5.20); LYMPHOCYTES PERCENT AUTO 16 % (21-46); MONOCYTES ABSOLUTE AUTO 0.48 K/mm3 (0.16-1.47); MONOCYTES PERCENT AUTO 5 % (4-13); Mean Corpuscular HGB Conc 32.9 g/dL (31.5-36.5); Mean Corpuscular Volume 97 fL (80-100); Mean Platelet Volume 10.3 fL (9.1-12.4); NEUTROPHILS ABSOLUTE AUTO 7.72 K/mm3 (1.96-9.15); NEUTROPHILS PERCENT AUTO 78 % (41-73); Platelet Count 215 K/mm3 (150-400); RDW Coefficient Variation 12.9 % (11.7-14.2); RDW Standard Deviation 46.9 fL (35.1-46.3); Red Blood Cell Count 3.56 M/mm3 (3.80-5.20); White Blood Cell Count 9.85 K/mm3 (4.00-11.30)
[2021-08-17 05:10] LABS: Albumin, Blood 2.8 g/dL (3.4-5.0); Anion Gap 7 mmol/L (6-16); Blood Urea Nitrogen 19 mg/dL (8-24); CO2, Blood 31 mmol/L (21-32); Calcium, Blood 9.2 mg/dL (8.5-10.1); Chloride, Blood 104 mmol/L (98-108); Creatinine, Blood 0.79 mg/dL (0.40-1.00); Glomerular Filtration Rate 78 (60-); Glucose, Blood 81 mg/dL (70-99); Magnesium, Blood 1.9 mg/dL (1.6-2.4); Phosphorus, Blood 2.6 mg/dL (2.5-4.9); Sodium, Blood 142 mmol/L (136-145)
--- NOTE | 2021-08-17 06:04 | NUR ---
PHONE CALL TO FAMILY THIS RN HELPS PT CALL HER PER REQUEST.
[2021-08-17] MEDS ORDERED: ALBU2.5V5 INH (13:56)
[2021-08-17] MEDS ORDERED: ASPI81CH PO (13:57)
[2021-08-17] MEDS ORDERED: BUPR100 PO (13:58)
[2021-08-17] MEDS ORDERED: CELEXA40 M1 PO (13:59)
[2021-08-17] MEDS ORDERED: VISBIOME 112.51 EACH PO (14:07)
[2021-08-17] MEDS ORDERED: CEFD300 PO (14:08)
[2021-08-17] MEDS ORDERED: AZIT500 PO (14:08)
--- NOTE | 2021-08-17 14:58 | NUR ---
DISCHARGE SUMMARY PT WAS TRANSPORTED BY WHEELCHAIR TO PERSONAL VEHICLE. SPOUSE WAS WAITING AT ENTRANCE WITH PT'S PORTABLE OXYGEN. DISCHARGE INSTRUCTIONS WERE GIVEN TO PT AND SPOUSE PRIOR TO DISCHARGE. ALL QUESTIONS AND CONCERNS WERE ADDRESSED PRIOR TO TRANSPORT. ALL PERSONAL BELONGINGS AND DISCHARGE INSTRUCTIONS WERE IN THE SPOUSE'S POSSESSION AT TIME OF DISCHARGE.
== END 2021-08-17 14:47 | disposition home or self-care (01) | DRG 871 ==
LOC: ER 07:26 → ERHOLD 10:29 → PCU 13:16
PROVIDERS: Student in an Organized Health Care Education/Training Program; ADMIT Family Medicine
DX: A41.9 Sepsis, unspecified organism (principal); J18.9 Pneumonia, unspecified organism; G93.41 Metabolic encephalopathy; J96.01 Acute respiratory failure with hypoxia; Z68.41 Body mass index [BMI] 40.0-44.9, adult; J44.0 Chronic obstructive pulmonary disease with (acute) lower respiratory infection; Z20.822 Contact with and (suspected) exposure to COVID-19; Z66 Do not resuscitate; R65.20 Severe sepsis without septic shock; E87.6 Hypokalemia; F41.8 Other specified anxiety disorders; E78.5 Hyperlipidemia, unspecified; I10 Essential (primary) hypertension; E11.9 Type 2 diabetes mellitus without complications; E66.01 Morbid (severe) obesity due to excess calories; E03.9 Hypothyroidism, unspecified; G47.33 Obstructive sleep apnea (adult) (pediatric); Z91.048 Other nonmedicinal substance allergy status; Z79.899 Other long term (current) drug therapy; Z86.73 Personal history of transient ischemic attack (TIA), and cerebral infarction without residual deficits; Z79.52 Long term (current) use of systemic steroids; Z90.710 Acquired absence of both cervix and uterus; Z98.890 Other specified postprocedural states; Z87.891 Personal history of nicotine dependence; Z98.2 Presence of cerebrospinal fluid drainage device
CPT/HCPCS: 0241U; 36415; 51702; 71045; 80053; 80069; 82803; 83605; 83735; 83880; 84145; 85025; 87040; 93005; 93010; 94640; 94664; 94762; 96365-59; 96366-59; 96375-59; 97116; 97162; 97166; 97535; 99285-25; A9270; J0456; J0696; J1644; J2920; J2930; J3370; J7050; J7060; J7120